=== PATIENT | male | born 1975 | race Caucasian/White ===

== ENCOUNTER 2020-08-21 15:47 | Inpatient (IN) | payer OTHER ==
[2020-08-21 16:36] LABS: ABSOLUTE LYMPHOCYTES (AUTO) 1.1 10^3/uL (0.5-4.7); ABSOLUTE MONOCYTES (AUTO) 0.3 10^3/uL (0.1-1.4); ABSOLUTE NEUT (AUTO) 6.8 10^3/uL (1.7-8.2); BASOPHILS % (AUTO) 0.2 % (0-2); EOSINOPHILS % (AUTO) 0.4 % (0-6); HEMATOCRIT 40.7 % (37.9-51.0); HEMOGLOBIN 13.8 g/dL (13.5-17.0); LYMPHOCYTES % (AUTO) 13.6 % (13-45); MEAN CORPUSCULAR HEMOGLOBIN 28.7 pg (27.0-33.4); MEAN CORPUSCULAR HGB CONC 33.9 g/dL (32.0-36.0); MEAN CORPUSCULAR VOLUME 84 fl (80-97); MONOCYTES % (AUTO) 4.1 % (3-13); PLATELET COUNT 229 10^3/uL (150-450); RED BLOOD COUNT 4.82 10^6/uL (4.35-5.55); RED CELL DISTRIBUTION WIDTH 13.3 % (11.5-14.0); SEGMENTED NEUTROPHILS % (AUTO) 81.7 % (42-78); TOTAL CELLS COUNTED % (AUTO) 100 %; WHITE BLOOD COUNT 8.3 10^3/uL (4.0-10.5)
[2020-08-21 16:53] LABS: ALBUMIN 4.1 g/dL (3.5-5.0); ALKALINE PHOSPHATASE 49 U/L (38-126); ANION GAP 13 (5-19); ASPARTATE AMINO TRANSFERASE 26 U/L (17-59); BILIRUBIN,DIRECT 0.2 mg/dL (0.0-0.4); BILIRUBIN,TOTAL 0.8 mg/dL (0.2-1.3); BLOOD UREA NITROGEN 13 mg/dL (7-20); CALCIUM 9.2 mg/dL (8.4-10.2); CARBON DIOXIDE 24 mmol/L (22-30); CHLORIDE 98 mmol/L (98-107); GLUCOSE 128 mg/dL (75-110); POTASSIUM 4.6 mmol/L (3.6-5.0); TOTAL PROTEIN 7.5 g/dL (6.3-8.2)
--- NOTE | 2020-08-21 17:13 | RADIOLOGY REPORT (SQ) ---
EXAM DESCRIPTION: CHEST SINGLE VIEW IMAGES COMPLETED DATE/TIME: 08/21/2020 4:56 pm REASON FOR STUDY: SOB COMPARISON: None. EXAM PARAMETERS: NUMBER OF VIEWS: One view. TECHNIQUE: Single frontal radiographic view of the chest acquired. RADIATION DOSE: NA LIMITATIONS: None. FINDINGS: LUNGS AND PLEURA: Low lung volumes with resultant bronchovascular crowding. Superimposed multifocal airspace opacities are seen throughout the lungs. Likely small left-sided pleural effusio n. No pneumothorax. MEDIASTINUM AND HILAR STRUCTURES: No masses. Contour normal. HEART AND VASCULAR STRUCTURES: Heart normal in size. Normal vasculature. BONES: No acute findings. HARDWARE: None in the chest. OTHER: No other significant finding. IMPRESSION: In the appropriate clinical setting, findings are consistent with multi lobar pneumonia. Given diffuse distribution, recommend consideration for atypical etiologies (to include viral/COVID ) in treatment planning. TECHNICAL DOCUMENTATION: JOB ID: [id number] 2010 [employer]- All Rights Reserved Reading location - IP/workstation name: [email or web address]
--- NOTE | 2020-08-21 18:05 | ER Document Report ---
Entered by TY DEAL SCRIBE 08/21/20 [id number] Acting as scribe for:MADIHA CONNELLY DO ED Respiratory Problem - General Chief Complaint: Breathing Difficulty Stated Complaint: DIFFICULTY BREATHING Time Seen by Provider: 08/21/20 16:19 Primary Care Provider: TONY HAYS MD [Primary Care Provider] - Follow up as needed Mode of Arrival: Ambulatory Information source: Patient Notes: This 45 year old male patient with known COVID-19 presents to the emergency department today with complaints of increasing shortness of breath. This dwayne ent was on vacation in [place] and he began having a headache on Monday evening along with a fever of 102, Monday went to an urgent care and he was tested for Covid and was prescribed amoxicillin. 2 days later that test came back positive. Since coming back home he has had increased shortness of breath. TRAVEL OUTSIDE OF THE [place] IN LAST 30 DAYS: No - Related Data Allergies/Adverse Reactions: No Known Allergies Allergy (Unverified 12/02/14 08:10) Home Medications: Metformin. Carvedilol. Fenifibrate. pravastatin. tulicity Past Medical History - General Information source: Patient - Social History Smoking Status: Former Smoker Cigarette use (# per day): No Frequency of alcohol use: None Drug Abuse: None Lives with: Family Family History: None - Past Medical History Cardiac Medical History: Reports: Hx Hypercholesterolemia, Hx Hypertension Endocrine Medical History: Reports: Hx Diabetes Mellitus Type 2 GI Medical History: Reports: Hx Gastroesophageal Reflux Disease Surgical Hx: Negative - Immunizations Hx Diphtheria, Pertussis, Tetanus Vaccination: Yes Review of Systems - Review of Systems Constitutional: See HPI, Fever EENT: No symptoms reported Cardiovascular: No symptoms reported Respiratory: See HPI, Cough, Short of breath, Wheezing Gastrointestinal: No symptoms reported Genitourinary: No symptoms reported Male Genitourinary: No symptoms reported Musculoskeletal: No symptoms reported Skin: No symptoms reported Hematologic/Lymphatic: No symptoms reported Neurological/Psychological: See HPI, Headaches -: Yes All other systems reviewed and negative Physical Exam - Vital signs Vitals: Temp 99.4 F 08/21/20 15:47 - Notes Notes: Physical Exam: General: Alert, obese. HEENT: Normocephalic. Atraumatic. PERRL. Extraocular movements intact. Oropharynx clear. Neck: Supple. Non-tender. Respiratory: No respiratory distress. Diminished in the bases bilaterally. Coarse rhonchi throughout. Cardiovascular: Regular rate and rhythm. Abdominal: Obese. Non-tender. No distension. Normal Bowel Sounds. Back: No gross abnormalities. Extremities: Moves all four extremities. Upper extremities: Normal inspection. Normal ROM. Lower extremities: Normal inspection. No edema. Normal ROM. Neurological: Normal cognition. AAOx4. Normal speech. Psychological: Normal affect. Normal Mood. Skin: Warm. Dry. Normal color. Course - Re-evaluation Re-evalutation: 08/21/20 18:34 MDM 45 year old with DM, Htn and HLD along with ISIS. Covid for the last week. Sick with multilobar pneumonia here. I have discussed with the hospitalist team and they have graciously agreed to see and evaluate for admission. - Vital Signs Vital signs: Temp Pulse Resp BP Pulse Ox 99.1 F 41 H 134/85 H 97 08/21/20 16:01 08/21/20 17:01 08/21/20 16:01 08/21/20 17:01 - Laboratory Result Diagrams: 08/21/20 15:50 08/21/20 15:50 Laboratory results interpreted by me: 08/21/20 08/21/20 08/21/20 15:50 15:50 15:50 Seg Neutrophils % 81.7 H ABG pO2 Sodium 135.2 L Glucose 128 H C-Reactive Protein 177.9 H 08/21/20 17:52 Seg Neutrophils % ABG pO2 73.6 L Sodium Glucose C-Reactive Protein - Diagnostic Test Radiology reviewed: Image reviewed, Reports reviewed - EKG Interpretation by Al EKG shows normal: Sinus rhythm Rate: Normal Rhythm: NSR - NSR NL [place] Poor R wave progression [address] elevation or depression my interpretation. Critical Care Note - Critical Care Note Total time excluding time spent on procedures (mins): 30 Discharge - Discharge Clinical Impression: COVID-19 Pneumonia Qualifiers: Pneumonia type: due to unspecified organism Laterality: bilateral Lung location: unspecified part of lung Qualified Code(s): J18.9 - Pneumonia, unspecified organism Condition: Serious Disposition: ADMITTED INPATIENT Admitting Provider: Mariza (Hospitalist) Unit Admitted: IMCU Referrals: TONY HAYS MD [Primary Care Provider] - Follow up as needed I personally performed the services described in the documentation, reviewed and edited the documentation which was dictated to the scribe in my presence, and it accurately records my words and actions.
[2020-08-21] MEDS ORDERED: DEXAMETHASONE SOD PHOSPHATE INJ 4 MG/1 ML VIAL IV ONE (18:11)
[2020-08-21] MEDS ORDERED: CEFTRIAXONE 1 GM/D5W RTU 1 GM/50 ML RTUPB IV ONE (18:11)
[2020-08-21] MEDS ORDERED: AZITHROMYCIN INJ 500 MG VIAL IV ONE ×2 (18:12→19:38)
[2020-08-21 18:26] LABS: ARTERIAL BLOOD BASE EXCESS -1.9 mmol/L; ARTERIAL BLOOD FIO2 4L; ARTERIAL BLOOD H2CO3 1.11 mmol/L (1.05-1.35); ARTERIAL BLOOD HCO3 22.4 mmol/L (20-24); ARTERIAL BLOOD O2 SATURATION 94.9 % (94-98); ARTERIAL BLOOD PO2 73.6 mmHg (80-100); ARTERIAL BLOOD TOTAL CO2 23.5 mmol/L (23-27)
[2020-08-21] MEDS ORDERED: ONDANSETRON HCL INJ/PF 4 MG/2 ML SDV IV PRN (18:30)
[2020-08-21] MEDS ORDERED: DEXTROSE 40% GEL 15 GM TUBE PO PRN ×2 (18:38)
[2020-08-21] MEDS ORDERED: DEXTROSE 50%-WATER 25 GM/50 ML DISP.SYRIN IV PRN ×2 (18:38)
[2020-08-21] MEDS ORDERED: GLUCAGON,HUMAN RECOMB 1 MG INJ IM PRN (18:38)
--- NOTE | 2020-08-21 19:05 | PDOC H&P ---
History of Present Illness Admission Date/PCP: TONY HAYS MD Patient complains of: Came in with complaints of shortness of breath for the last 1 week History of Present Illness: KAROLINA HUANG is a 45 year old male with history of diabetes mellitus, hypert ension, hypercholesteremia, obesity, sleep apnea came to the emergency room complaining of not feeling well, associated with shortness of breath for the last 1 week. He went [facility] [place] 1 week ago came back with the symptoms. He was tested for COVID-19 2 days ago which was positive. In the emergency room patient was tachypneic tachycardic, requiring oxygen supplementations. Medical consult was called for admission to hospital. Patient is full code. Past Medical History Cardiac Medical History: Reports: Hyperlipidema, Hypertension Endocrine Medical History: Reports: Diabetes Mellitus Type 2 GI Medical History: Reports: Gastroesophageal Reflux Disease Past Surgical History Past Surgical History: Reports: None Social History Lives with: Family Smoking Status: Former Smoker Electronic Cigarette use?: No Hx Recreational Drug Use: No Hx Prescription Drug Abuse: No - Advance Directive Resuscitation Status: Full Code Family History Family History: None Parental Family History Reviewed: Yes - Hypertension and diabetes mellitus Children Family History Reviewed: Yes Sibling(s) Family History Reviewed.: Yes Medication/Allergy Home Medications: Cephalexin Monohydrate [Keflex 500 mg Capsule] 500 mg PO TID 12/02/14 Gemfibrozil [Lopid] 600 mg PO DAILY 12/02/14 Glimepiride [Amaryl 4 mg Tablet] 4 mg PO BID 12/02/14 Hydrocodone/Chlorphen P-Stirex [Hydrocodone-Chlorpheniram Susp] 5 ml PO Q12H PRN 12/02/14 Irbesartan [Avapro] 300 mg PO DAILY 12/02/14 Metformin HCl [Glucophage] 500 mg PO DAILY 12/02/14 Ondansetron [Zofran Odt 4 mg Tablet] 1 - 2 tab PO Q4H PRN #30 tab.rapdis 12/02/14 Pioglitazone HCl 30 mg PO DAILY 12/02/14 Pravastatin Sodium [Pravachol] 40 mg PO DAILY 12/02/14 Allergies/Adverse Reactions: No Known Allergies Allergy (Unverified 12/02/14 08:10) Review of Systems Constitutional: PRESENT: fatigue, fever(s), weakness Eyes: ABSENT: visual disturbances Ears: ABSENT: hearing changes Nose, Mouth, and Throat: ABSENT: sore throat Cardiovascular: PRESENT: dyspnea on exertion Respiratory: PRESENT: cough, dyspnea Gastrointestinal: ABSENT: abdominal pain, constipation, diarrhea, hematemesis, hematochezia, nausea, vomiting Genitourinary: ABSENT: dysuria, hematuria Integumentary: ABSENT: rash, wounds Neurological: ABSENT: abnormal gait, abnormal speech, confusion, dizziness, focal weakness, syncope Psychiatric: ABSENT: anxiety, depression, homidical ideation, suicidal ideation Endocrine: ABSENT: cold intolerance, heat intolerance, polydipsia, polyuria Physical Exam Vital Signs: Temp Pulse Resp BP Pulse Ox 99.1 F 41 H 134/85 H 97 08/21/20 16:01 08/21/20 17:01 08/21/20 16:01 08/21/20 17:01 Intake & Output 08/20/20 08/21/20 08/22/20 06:59 06:59 06:59 Weight 128 kg General appearance: PRESENT: cooperative, morbidly obese, other - In moderate distress Head exam: PRESENT: atraumatic Eye exam: PRESENT: PERRLA Ear exam: PRESENT: normal external ear exam Teeth exam: PRESENT: poor dentation Neck exam: ABSENT: carotid bruit, JVD, lymphadenopathy, thyromegaly Respiratory exam: PRESENT: tachypnea Cardiovascular exam: PRESENT: tachycardia GI/Abdominal exam: PRESENT: normal bowel sounds, soft. ABSENT: distended, guarding, mass, organolmegaly, rebound, tenderness Rectal exam: PRESENT: deferred Extremities exam: PRESENT: full ROM. ABSENT: calf tenderness, clubbing, pedal edema Neurological exam: PRESENT: alert, awake, oriented to person, oriented to place, oriented to time, oriented to situation, CN II-XII grossly intact. ABSENT: motor sensory deficit Psychiatric exam: PRESENT: appropriate affect, normal mood. ABSENT: homicidal ideation, suicidal ideation Results Laboratory Results: 08/21/20 15:50 08/21/20 15:50 08/21/20 08/21/20 08/21/20 15:50 15:50 15:50 WBC 8.3 RBC 4.82 Hgb 13.8 Hct 40.7 MCV 84 MCH 28.7 MCHC 33.9 RDW 13.3 Plt Count 229 Seg Neutrophils % 81.7 H Carbonic Acid HCO3/H2CO3 Ratio ABG pH ABG pCO2 ABG pO2 ABG HCO3 ABG O2 Saturation ABG Base Excess FiO2 Sodium 135.2 L Potassium 4.6 Chloride 98 Carbon Dioxide 24 Anion Gap 13 BUN 13 Creatinine 0.69 Est GFR ( Amer) > 60 Glucose 128 H Lactic Acid 2.0 Calcium 9.2 Total Bilirubin 0.8 AST 26 Alkaline Phosphatase 49 C-Reactive Protein Total Protein 7.5 Albumin 4.1 08/21/20 08/21/20 15:50 17:52 WBC RBC Hgb Hct MCV MCH MCHC RDW Plt Count Seg Neutrophils % Carbonic Acid 1.11 HCO3/H2CO3 Ratio 20:1 ABG pH 7.40 ABG pCO2 37.0 ABG pO2 73.6 L ABG HCO3 22.4 ABG O2 Saturation 94.9 ABG Base Excess -1.9 FiO2 4L Sodium Potassium Chloride Carbon Dioxide Anion Gap BUN Creatinine Est GFR ( Amer) Glucose Lactic Acid Calcium Total Bilirubin AST Alkaline Phosphatase C-Reactive Protein 177.9 H Total Protein Albumin 08/21/20 15:50 Troponin I < 0.012 Impressions: Chest X-Ray 08/21/20 16:17 IMPRESSION: In the appropriate clinical setting, findings are consistent with multi lobar pneumonia. Given diffuse distribution, recommend consideration for atypical etiologies (to include viral/COVID) in treatment planning. Assessment and Plan - Diagnosis (1) COVID-19 Is this a current diagnosis for this admission?: Yes Plan: 08/21/2020-patient is going to be admitted to [facility] for COVID-19 pneumonia. BiPAP was requested. To continue oxygen supplementations. ABG was requested. CT of the chest was requested. Daily ferritin, ESR, C-reactive protein, procalcitonin levels are requested. Started on zinc, Zithromax, IV Rocephin 1 g daily, dexamethasone, to give convulsant plasma. Requested pharmacy to start on remdesivir. Patient is on treatment dose of Lovenox. CT of the chest is pending at this time. (2) Pneumonia Qualifiers: Pneumonia type: due to unspecified organism Laterality: bilateral Lung location: unspecified part of lung Qualified Code(s): J18.9 - Pneumonia, unspecified organism Is this a current diagnosis for this admission?: Yes Plan: 08/21/2020-chest x-ray indicated for bilateral pneumonia. Most likely COVID-19 pneumonia. Blood cultures are pending. Started on IV Rocephin, p.o. Zithromax daily. (3) Acute respiratory failure due to COVID-19 Is this a current diagnosis for this admission?: Yes Plan: 08/21/2020-patient is going to be admitted to [facility] with acute respiratory failu re with hypoxia. Patient is requiring oxygen supplementations. Patient may need BiPAP. (4) Morbid obesity Is this a current diagnosis for this admission?: No Plan: 08/21/2020-patient BMI is more than 39. Diet exercise weight loss lifestyle modifications discussed with the patient. (5) Diabetes Qualifiers: Diabetes mellitus type: type 2 Is this a current diagnosis for this admission?: No Plan: 08/21/2020-patient has history of type 2 diabetes mellitus. To restart him on Actos, glipizide. Placed on insulin sliding scale before meals and at bedtime. Again diet exercise weight loss lifestyle modifications discussed with the patient. - Time Anticipated Discharge Disposition: Home, Self Care Anticipated Discharge Timeframe: 1 week
--- NOTE | 2020-08-21 19:40 | EKG REPORT ---
SEVERITY:- ABNORMAL ECG - SINUS RHYTHM ABNORMAL T, CONSIDER ISCHEMIA, INFERIOR LEADS : Confirmed by: Marion Jama MD 21-Aug-2020 19:39:50
[2020-08-21 20:02] LABS: INTERNATIONAL RATION (INR) 0.93; PROTHROMBIN TIME 12.7 SEC (11.4-15.4)
[2020-08-21 20:03] LABS: PARTIAL THROMBOPLASTIN TIME 42.4 SEC (23.5-35.8)
--- NOTE | 2020-08-21 21:46 | RADIOLOGY REPORT (SQ) ---
EXAM DESCRIPTION: CT CHEST WITH INTRAVENOUS CONTRAST CLINICAL HISTORY: Clinical concern for acute pulmonary embolism. Patient presents with shortness of breath. COMPARISON: Chest radiograph performed the same day. TECHNIQUE: CT of the chest was performed with intravenous contrast using pulmonary embolism protocol, followed by CTA of the pulmonary arterial vasculature, with 3D reconstruction of the pulmonary arterial vasculature. The patient was injected with 100 mL Omnipaque 350 IV. FINDINGS: There are no filling defects in the main pulmonary trunk, first order or the visualized lower order branches of the bilateral pulmonary arteries, to suggest pulmonary embolism. There is no evidence of clinically significant thoracic aortic aneurysm or thoracic aortic dissection. There is no evidence of clinically significant pericardial effusion. There is diffuse severe bilateral multifocal groundglass opacities. Multiple prominent appearing mediastinal lymph nodes are likely reactive in nature. No suspicious lytic or blastic osseous lesions are identified. The visualized upper abdominal structures seen on the exam appear unremarkable. IMPRESSION: 1. No CT evidence of acute pulmonary embolism. 2. Diffuse severe multifocal ground glass opacities bilaterally. Although findings are nonspecific and differential diagnosis includes infectious and inflammatory causes, pattern is concerning for potential viral pneumonia. Clinical correlation is advised.
[2020-08-21] MEDS: ENOXAPARIN SODIUM INJ 120 MG/0.8 ML DISP.SYRIN SUBCUT SCH (23:00)
[2020-08-22] MEDS: ACETAMINOPHEN 325 MG TABLET PO PRN ×2 (06:08→22:49)
[2020-08-22] MEDS: PANTOPRAZOLE SODIUM 40 MG TABLET.DR PO SCH ×2 (06:09→17:04)
[2020-08-22] MEDS: INSULIN REG, HUMAN 100 UNIT/ML 3 ML VIAL (PYX) SUBCUT SCH ×5 (06:10→22:49)
[2020-08-22 06:25] LABS: ABSOLUTE MONOCYTES (AUTO) 0.2 10^3/uL (0.1-1.4); ABSOLUTE NEUT (AUTO) 5.6 10^3/uL (1.7-8.2); BASOPHILS % (AUTO) 0.1 % (0-2); HEMATOCRIT 40.8 % (37.9-51.0); HEMOGLOBIN 13.8 g/dL (13.5-17.0); LYMPHOCYTES % (AUTO) 14.1 % (13-45); MEAN CORPUSCULAR HEMOGLOBIN 28.9 pg (27.0-33.4); MEAN CORPUSCULAR HGB CONC 33.9 g/dL (32.0-36.0); MEAN CORPUSCULAR VOLUME 85 fl (80-97); MONOCYTES % (AUTO) 3.1 % (3-13); PLATELET COUNT 290 10^3/uL (150-450); RED BLOOD COUNT 4.77 10^6/uL (4.35-5.55); RED CELL DISTRIBUTION WIDTH 13.5 % (11.5-14.0); SEGMENTED NEUTROPHILS % (AUTO) 82.7 % (42-78); TOTAL CELLS COUNTED % (AUTO) 100 %; WHITE BLOOD COUNT 6.8 10^3/uL (4.0-10.5)
[2020-08-22 07:02] LABS: ALBUMIN 4.2 g/dL (3.5-5.0); ALKALINE PHOSPHATASE 47 U/L (38-126); ASPARTATE AMINO TRANSFERASE 26 U/L (17-59); BILIRUBIN,DIRECT 0.2 mg/dL (0.0-0.4); BILIRUBIN,TOTAL 0.6 mg/dL (0.2-1.3); BLOOD UREA NITROGEN 16 mg/dL (7-20); CALCIUM 9.4 mg/dL (8.4-10.2); CARBON DIOXIDE 18 mmol/L (22-30); CHLORIDE 99 mmol/L (98-107); GLUCOSE 103 mg/dL (75-110); TOTAL PROTEIN 7.9 g/dL (6.3-8.2)
[2020-08-22 07:14] LABS: C-REACTIVE PROTEIN 205.6 mg/L (<10.0)
[2020-08-22 07:25] LABS: ANION GAP 20 (5-19)
[2020-08-22] MEDS: ASCORBIC ACID 500 MG TABLET PO SCH ×2 (09:09→17:04)
[2020-08-22] MEDS: ASPIRIN 81 MG TABLET, ENT COATED PO SCH (09:09)
[2020-08-22] MEDS: CHOLECALCIFEROL (D3) 1,000 UNIT (25 MCG) TABLET PO SCH (09:09)
[2020-08-22] MEDS: ZINC SULFATE 220 MG CAPSULE PO SCH (09:09)
[2020-08-22] MEDS: DEXAMETHASONE SOD PHOS INJ 10 MG/1 ML VIAL IV SCH (09:09)
[2020-08-22] MEDS: ENOXAPARIN SODIUM INJ 120 MG/0.8 ML DISP.SYRIN SUBCUT SCH ×2 (09:09→21:42)
[2020-08-22 09:51] LABS: APPEARANCE,URINE CLEAR; BILIRUBIN,URINE NEGATIVE (NEGATIVE); COLOR,URINE YELLOW; GLUCOSE, URINE >=500 mg/dL (NEGATIVE); KETONES,URINE 20 mg/dL (NEGATIVE); LEUKOCYTE ESTERASE,URINE NEGATIVE (NEGATIVE); NITRITE,URINE NEGATIVE (NEGATIVE); PROTEIN,URINE 30 mg/dL (NEGATIVE); UROBILINOGEN,URINE NEGATIVE mg/dL (<2.0)
[2020-08-22 10:04] LABS: A TYPE INFLUENZA AG NEGATIVE (NEGATIVE); B INFLUENZA AG NEGATIVE (NEGATIVE)
--- NOTE | 2020-08-22 16:13 | PDOC PROGRESS REPORT ---
Subjective Date:: 08/22/20 Subjective:: No adverse events overnight. No new complaints. He was having a nose bleed fro m the oxygen and so humidity was added. He is on about 5 L and his SPO2 is 91 to 92%. He is very worried about his prognosis. Reason For Visit: COVID,PNEUMONIA Physical Exam Vital Signs: Temp Pulse Resp BP Pulse Ox 97.6 F 100 20 113/60 92 08/22/20 11:14 08/22/20 11:14 08/22/20 11:14 08/22/20 11:14 08/22/20 11:14 Intake & Output 08/21/20 08/22/20 08/23/20 06:59 06:59 06:59 Intake Total 50 444 Output Total 975 Balance 50 -531 Weight 117.6 kg General appearance: PRESENT: cooperative, disheveled, mild distress, morbidly obese Respiratory exam: PRESENT: clear to auscultation sarah, symmetrical, tachypnea, unlabored. ABSENT: accessory muscle use, chest wall tenderness, prolonged expiratory phas, rhonchi, wheezes Cardiovascular exam: PRESENT: +S1, +S2, tachycardia Pulses: PRESENT: normal carotid pulses Vascular exam: PRESENT: normal capillary refill GI/Abdominal exam: PRESENT: normal bowel sounds, soft. ABSENT: distended, guarding, rebound, tenderness Extremities exam: ABSENT: clubbing, pedal edema Musculoskeletal exam: PRESENT: normal inspection. ABSENT: deformity Neurological exam: PRESENT: awake, oriented to person, oriented to place, oriented to situation Psychiatric exam: PRESENT: anxious Skin exam: PRESENT: dry, warm Results Laboratory Results: 08/22/20 05:06 08/22/20 05:06 08/21/20 08/21/20 08/21/20 15:50 15:50 15:50 WBC 8.3 RBC 4.82 Hgb 13.8 Hct 40.7 MCV 84 MCH 28.7 MCHC 33.9 RDW 13.3 Plt Count 229 Seg Neutrophils % 81.7 H Carbonic Acid HCO3/H2CO3 Ratio ABG pH ABG pCO2 ABG pO2 ABG HCO3 ABG O2 Saturation ABG Base Excess FiO2 Sodium 135.2 L Potassium 4.6 Chloride 98 Carbon Dioxide 24 Anion Gap 13 BUN 13 Creatinine 0.69 Est GFR ( Amer) > 60 Glucose 128 H Lactic Acid 2.0 Calcium 9.2 Ferritin Total Bilirubin 0.8 AST 26 Alkaline Phosphatase 49 C-Reactive Protein Total Protein 7.5 Albumin 4.1 Urine Color Urine Appearance Urine pH Ur Specific Kyle Urine Protein Urine Glucose (UA) Urine Ketones Urine Blood Urine Nitrite Ur Leukocyte Esterase Urine WBC (Auto) Urine RBC (Auto) Blood Type 08/21/20 08/21/20 08/21/20 15:50 17:52 19:34 WBC RBC Hgb Hct MCV MCH MCHC RDW Plt Count Seg Neutrophils % Carbonic Acid 1.11 HCO3/H2CO3 Ratio 20:1 ABG pH 7.40 ABG pCO2 37.0 ABG pO2 73.6 L ABG HCO3 22.4 ABG O2 Saturation 94.9 ABG Base Excess -1.9 FiO2 4L Sodium Potassium Chloride Carbon Dioxide Anion Gap BUN Creatinine Est GFR ( Amer) Glucose Lactic Acid Calcium Ferritin Total Bilirubin AST Alkaline Phosphatase C-Reactive Protein 177.9 H Total Protein Albumin Urine Color Urine Appearance Urine pH Ur Specific Kyle Urine Protein Urine Glucose (UA) Urine Ketones Urine Blood Urine Nitrite Ur Leukocyte Esterase Urine WBC (Auto) Urine RBC (Auto) Blood Type O POSITIVE 08/22/20 08/22/20 08/22/20 05:06 05:06 09:20 WBC 6.8 RBC 4.77 Hgb 13.8 Hct 40.8 MCV 85 MCH 28.9 MCHC 33.9 RDW 13.5 Plt Count 290 Seg Neutrophils % 82.7 H Carbonic Acid HCO3/H2CO3 Ratio ABG pH ABG pCO2 ABG pO2 ABG HCO3 ABG O2 Saturation ABG Base Excess FiO2 Sodium 136.5 L Potassium 5.0 Chloride 99 Carbon Dioxide 18 L Anion Gap 20 H BUN 16 Creatinine 0.62 Est GFR ( Amer) > 60 Glucose 103 Lactic Acid Calcium 9.4 Ferritin 313.00 Total Bilirubin 0.6 AST 26 Alkaline Phosphatase 47 C-Reactive Protein 205.6 H Total Protein 7.9 Albumin 4.2 Urine Color YELLOW Urine Appearance CLEAR Urine pH 5.0 Ur Specific Kyle 1.030 Urine Protein 30 H Urine Glucose (UA) >=500 H Urine Ketones 20 H Urine Blood NEGATIVE Urine Nitrite NEGATIVE Ur Leukocyte Esterase NEGATIVE Urine WBC (Auto) 1 Urine RBC (Auto) 1 Blood Type 08/21/20 08/21/20 15:50 19:34 Troponin I < 0.012 < 0.012 Impressions: Chest/Abdomen CTA 08/21/20 00:00 IMPRESSION: 1. No CT evidence of acute pulmonary embolism. 2. Diffuse severe multifocal ground glass opacities bilaterally. Although findings are nonspecific and differential diagnosis includes infectious and inflammatory causes, pattern is concerning for potential viral pneumonia. Clinical correlation is advised. Chest X-Ray 08/21/20 16:17 IMPRESSION: In the appropriate clinical setting, findings are consistent with multi lobar pneumonia. Given diffuse distribution, recommend consideration for atypical etiologies (to include viral/COVID) in treatment planning. Assessment and Plan - Diagnosis (1) Acute respiratory failure due to COVID-19 Is this a current diagnosis for this admission?: Yes (2) Pneumonia due to COVID-19 virus Is this a current diagnosis for this admission?: Yes (3) Type 2 diabetes mellitus treated with insulin Is this a current diagnosis for this admission?: Yes (4) Hypertension Qualifiers: Hypertension type: essential hypertension Qualified Code(s): I10 - Essential (primary) hypertension Is this a current diagnosis for this admission?: Yes (5) Hyperlipidemia associated with type 2 diabetes mellitus Is this a current diagnosis for this admission?: Yes (6) Morbid obesity Is this a current diagnosis for this admission?: Yes - Plan Summary Summary: Continue with Decadron. Start remdesivir. On empiric antibiotic coverage, cultures pending. We resumed a few of his home medications today, but most of his blood pressure medication was held because his blood pressure is not elevated at this point. Currently on 5 L nasal cannula, continue supportive care. - Time Time Spent with patient: 15-24 minutes Anticipated Discharge Disposition: Undetermin Anticipated Discharge Timeframe: Unknown
[2020-08-22] MEDS: CEFTRIAXONE 1 GM/D5W RTU 1 GM/50 ML RTUPB IV SCH (17:04)
[2020-08-22] MEDS ORDERED: REMDESIVIR 200 MG in NORMAL SALINE 250 ML IV ONE (18:00)
--- NOTE | 2020-08-22 19:40 | EKG REPORT ---
SEVERITY:- ABNORMAL ECG - SINUS RHYTHM ABNORMAL T, CONSIDER ISCHEMIA, INFERIOR LEADS : Confirmed by: Marion Jama MD 22-Aug-2020 19:40:01
[2020-08-22] MEDS: ATORVASTATIN CALCIUM 10 MG TABLET PO SCH (21:42)
[2020-08-22] MEDS: CARVEDILOL 6.25 MG TABLET PO SCH (21:42)
[2020-08-23] MEDS: PANTOPRAZOLE SODIUM 40 MG TABLET.DR PO SCH ×2 (05:17→17:23)
[2020-08-23] MEDS: ACETAMINOPHEN 325 MG TABLET PO PRN ×2 (05:26→10:07)
[2020-08-23 06:43] LABS: ABSOLUTE LYMPHOCYTES (AUTO) 1.4 10^3/uL (0.5-4.7); ABSOLUTE MONOCYTES (AUTO) 0.8 10^3/uL (0.1-1.4); ABSOLUTE NEUT (AUTO) 9.5 10^3/uL (1.7-8.2); BASOPHILS % (AUTO) 0.2 % (0-2); HEMATOCRIT 40.6 % (37.9-51.0); HEMOGLOBIN 13.8 g/dL (13.5-17.0); LYMPHOCYTES % (AUTO) 12.2 % (13-45); MEAN CORPUSCULAR HEMOGLOBIN 28.6 pg (27.0-33.4); MEAN CORPUSCULAR HGB CONC 33.9 g/dL (32.0-36.0); MEAN CORPUSCULAR VOLUME 84 fl (80-97); MONOCYTES % (AUTO) 7.1 % (3-13); PLATELET COUNT 366 10^3/uL (150-450); RED BLOOD COUNT 4.82 10^6/uL (4.35-5.55); RED CELL DISTRIBUTION WIDTH 13.3 % (11.5-14.0); SEGMENTED NEUTROPHILS % (AUTO) 80.5 % (42-78); TOTAL CELLS COUNTED % (AUTO) 100 %; WHITE BLOOD COUNT 11.8 10^3/uL (4.0-10.5)
[2020-08-23 07:14] LABS: ALBUMIN 4.1 g/dL (3.5-5.0); ALKALINE PHOSPHATASE 47 U/L (38-126); ANION GAP 17 (5-19); ASPARTATE AMINO TRANSFERASE 21 U/L (17-59); BILIRUBIN,DIRECT 0.2 mg/dL (0.0-0.4); BILIRUBIN,TOTAL 0.7 mg/dL (0.2-1.3); BLOOD UREA NITROGEN 20 mg/dL (7-20); C-REACTIVE PROTEIN 81.8 mg/L (<10.0); CALCIUM 9.1 mg/dL (8.4-10.2); CARBON DIOXIDE 22 mmol/L (22-30); CHLORIDE 98 mmol/L (98-107); GLUCOSE 110 mg/dL (75-110); POTASSIUM 4.6 mmol/L (3.6-5.0); TOTAL PROTEIN 7.6 g/dL (6.3-8.2)
[2020-08-23] MEDS ORDERED: INFLUENZA QUAD (6MOS+) 2020-21 VAC 0.5 ML SYR IM ONE (08:00)
[2020-08-23] MEDS: INSULIN REG, HUMAN 100 UNIT/ML 3 ML VIAL (PYX) SUBCUT SCH ×4 (08:16→21:56)
[2020-08-23] MEDS ORDERED: PRAVASTATIN SODIUM 40 MG PO SCH (10:00)
[2020-08-23] MEDS ORDERED: CANAGLIFLOZIN 300 MG PO SCH (10:00)
[2020-08-23] MEDS: ZINC SULFATE 220 MG CAPSULE PO SCH (10:06)
[2020-08-23] MEDS: ASPIRIN 81 MG TABLET, ENT COATED PO SCH (10:06)
[2020-08-23] MEDS: CARVEDILOL 6.25 MG TABLET PO SCH ×2 (10:06→21:55)
[2020-08-23] MEDS: ENOXAPARIN SODIUM INJ 120 MG/0.8 ML DISP.SYRIN SUBCUT SCH ×2 (10:06→21:57)
[2020-08-23] MEDS: DEXAMETHASONE SOD PHOS INJ 10 MG/1 ML VIAL IV SCH (10:07)
[2020-08-23] MEDS: ASCORBIC ACID 500 MG TABLET PO SCH ×2 (10:07→17:23)
[2020-08-23] MEDS: CHOLECALCIFEROL (D3) 1,000 UNIT (25 MCG) TABLET PO SCH (10:07)
[2020-08-23] MEDS: GUAIFENESIN/CODEINE PHOS 100-10 MG/ 5 ML UDC PO PRN ×2 (12:07→22:02)
[2020-08-23] MEDS ORDERED: SODIUM CHLORIDE NASAL SPRAY 44 ML NAREB PRN (13:44)
[2020-08-23] MEDS: BENZONATATE 100 MG CAPSULE PO SCH ×2 (14:05→21:56)
--- NOTE | 2020-08-23 14:39 | PDOC PROGRESS REPORT ---
Subjective Date:: 08/23/20 Subjective:: No adverse events overnight. No new complaints. It looks like they wanted him to go on CPAP overnight but he refused. He is still on 5 L and his saturations are holding okay today. He does not appear tachypneic, he just looks tired. He said he got 3 or 4 hours of sleep last night. Reason For Visit: COVID,PNEUMONIA Physical Exam Vital Signs: Temp Pulse Resp BP Pulse Ox 97.9 F 84 16 126/69 H 95 08/23/20 08:06 08/23/20 08:06 08/23/20 08:06 08/23/20 08:06 08/23/20 09:20 Intake & Output 08/22/20 08/23/20 08/24/20 06:59 06:59 06:59 Intake Total 50 2118 Output Total 2775 Balance 50 -657 Weight 117.6 kg 113.2 kg General appearance: PRESENT: cooperative, disheveled, mild distress, morbidly obese Respiratory exam: PRESENT: clear to auscultation sarah, symmetrical, tachypnea, unlabored. ABSENT: accessory muscle use, chest wall tenderness, prolonged expiratory phas, rhonchi, wheezes Cardiovascular exam: PRESENT: +S1, +S2, tachycardia Pulses: PRESENT: normal carotid pulses Vascular exam: PRESENT: normal capillary refill GI/Abdominal exam: PRESENT: normal bowel sounds, soft. ABSENT: distended, guarding, rebound, tenderness Extremities exam: ABSENT: clubbing, pedal edema Musculoskeletal exam: PRESENT: normal inspection. ABSENT: deformity Neurological exam: PRESENT: awake, oriented to person, oriented to place, oriented to situation Psychiatric exam: PRESENT: Flat affect Skin exam: PRESENT: dry, warm Results Laboratory Results: 08/23/20 05:55 08/23/20 05:55 08/21/20 08/23/20 08/23/20 19:34 05:55 05:55 WBC 11.8 H RBC 4.82 Hgb 13.8 Hct 40.6 MCV 84 MCH 28.6 MCHC 33.9 RDW 13.3 Plt Count 366 Seg Neutrophils % 80.5 H Sodium 136.5 L Potassium 4.6 Chloride 98 Carbon Dioxide 22 Anion Gap 17 BUN 20 Creatinine 0.66 Est GFR ( Amer) > 60 Glucose 110 Calcium 9.1 Ferritin 356.00 Total Bilirubin 0.7 AST 21 Alkaline Phosphatase 47 C-Reactive Protein 81.8 H Total Protein 7.6 Albumin 4.1 Blood Type O POSITIVE 08/21/20 08/21/20 15:50 19:34 Troponin I < 0.012 < 0.012 Impressions: Chest/Abdomen CTA 08/21/20 00:00 IMPRESSION: 1. No CT evidence of acute pulmonary embolism. 2. Diffuse severe multifocal ground glass opacities bilaterally. Although findings are nonspecific and differential diagnosis includes infectious and inflammatory causes, pattern is concerning for potential viral pneumonia. Clinical correlation is advised. Chest X-Ray 08/21/20 16:17 IMPRESSION: In the appropriate clinical setting, findings are consistent with multi lobar pneumonia. Given diffuse distribution, recommend consideration for atypical etiologies (to include viral/COVID) in treatment planning. Assessment and Plan - Diagnosis (1) Acute respiratory failure due to COVID-19 Is this a current diagnosis for this admission?: Yes (2) Pneumonia due to COVID-19 virus Is this a current diagnosis for this admission?: Yes (3) Type 2 diabetes mellitus treated with insulin Is this a current diagnosis for this admission?: Yes (4) Hypertension Qualifiers: Hypertension type: essential hypertension Qualified Code(s): I10 - Essential (primary) hypertension Is this a current diagnosis for this admission?: Yes (5) Hyperlipidemia associated with type 2 diabetes mellitus Is this a current diagnosis for this admission?: Yes (6) Morbid obesity Is this a current diagnosis for this admission?: Yes - Plan Summary Summary: Continue with Decadron. Continue remdesivir. On empiric antibiotic coverage, cultures pending. We resumed a few of his home medications today, but most of his blood pressure medication was held because his blood pressure is not elevated at this point. Currently on 5 L nasal cannula, continue supportive care. - Time Time Spent with patient: 15-24 minutes Anticipated Discharge Disposition: Home, Self Care Anticipated Discharge Timeframe: Unknown
[2020-08-23] MEDS: CEFTRIAXONE 1 GM/D5W RTU 1 GM/50 ML RTUPB IV SCH (17:23)
[2020-08-23 18:41] LABS: INTERNATIONAL RATION (INR) 0.99; PROTHROMBIN TIME 13.3 SEC (11.4-15.4)
[2020-08-23 18:42] LABS: PARTIAL THROMBOPLASTIN TIME 42.9 SEC (23.5-35.8)
[2020-08-23 18:44] LABS: D-DIMER 0.29 ug/mL (0.00-0.50)
[2020-08-23] MEDS: ATORVASTATIN CALCIUM 10 MG TABLET PO SCH (21:55)
[2020-08-23] MEDS: REMDESIVIR 100 MG in NORMAL SALINE 250 ML IV SCH (21:59)
[2020-08-24 06:03] LABS: HEMOGLOBIN 13.3 g/dL (13.5-17.0); MEAN CORPUSCULAR HEMOGLOBIN 28.9 pg (27.0-33.4); MEAN CORPUSCULAR HGB CONC 34.2 g/dL (32.0-36.0); MEAN CORPUSCULAR VOLUME 85 fl (80-97); PLATELET COUNT 393 10^3/uL (150-450); RED BLOOD COUNT 4.61 10^6/uL (4.35-5.55); RED CELL DISTRIBUTION WIDTH 13.5 % (11.5-14.0); WHITE BLOOD COUNT 8.9 10^3/uL (4.0-10.5)
[2020-08-24] MEDS: BENZONATATE 100 MG CAPSULE PO SCH ×3 (06:11→22:34)
[2020-08-24] MEDS: PANTOPRAZOLE SODIUM 40 MG TABLET.DR PO SCH ×2 (06:11→17:24)
[2020-08-24] MEDS: GUAIFENESIN/CODEINE PHOS 100-10 MG/ 5 ML UDC PO PRN ×2 (06:36→14:39)
[2020-08-24] MEDS: ACETAMINOPHEN 325 MG TABLET PO PRN (06:36)
[2020-08-24 06:39] LABS: ALBUMIN 3.7 g/dL (3.5-5.0); ALKALINE PHOSPHATASE 48 U/L (38-126); ANION GAP 12 (5-19); ASPARTATE AMINO TRANSFERASE 19 U/L (17-59); BILIRUBIN,DIRECT 0.2 mg/dL (0.0-0.4); BILIRUBIN,TOTAL 0.5 mg/dL (0.2-1.3); BLOOD UREA NITROGEN 21 mg/dL (7-20); C-REACTIVE PROTEIN 75.7 mg/L (<10.0); CALCIUM 8.7 mg/dL (8.4-10.2); CARBON DIOXIDE 24 mmol/L (22-30); CHLORIDE 101 mmol/L (98-107); GLUCOSE 120 mg/dL (75-110); POTASSIUM 4.6 mmol/L (3.6-5.0)
[2020-08-24] MEDS: INSULIN REG, HUMAN 100 UNIT/ML 3 ML VIAL (PYX) SUBCUT SCH ×4 (08:36→22:34)
[2020-08-24] MEDS: DEXAMETHASONE SOD PHOS INJ 10 MG/1 ML VIAL IV SCH (09:59)
[2020-08-24] MEDS: CARVEDILOL 6.25 MG TABLET PO SCH ×2 (09:59→22:34)
[2020-08-24] MEDS: CHOLECALCIFEROL (D3) 1,000 UNIT (25 MCG) TABLET PO SCH (10:00)
[2020-08-24] MEDS: ENOXAPARIN SODIUM INJ 120 MG/0.8 ML DISP.SYRIN SUBCUT SCH ×2 (10:00→22:34)
[2020-08-24] MEDS: ASCORBIC ACID 500 MG TABLET PO SCH ×2 (10:00→17:24)
[2020-08-24] MEDS: ASPIRIN 81 MG TABLET, ENT COATED PO SCH (10:00)
[2020-08-24] MEDS: ZINC SULFATE 220 MG CAPSULE PO SCH (10:01)
[2020-08-24 13:38] LABS: APPEARANCE,URINE CLEAR; BILIRUBIN,URINE NEGATIVE (NEGATIVE); COLOR,URINE YELLOW; GLUCOSE, URINE >=500 mg/dL (NEGATIVE); KETONES,URINE TRACE mg/dL (NEGATIVE); LEUKOCYTE ESTERASE,URINE NEGATIVE (NEGATIVE); NITRITE,URINE NEGATIVE (NEGATIVE); PROTEIN,URINE NEGATIVE (NEGATIVE); URINE SPECIFIC GRAVITY 1.027; UROBILINOGEN,URINE NEGATIVE mg/dL (<2.0)
--- NOTE | 2020-08-24 16:27 | PDOC PROGRESS REPORT ---
Subjective Date:: 08/24/20 Subjective:: No adverse events overnight. No new complaints. Oxygen requirement stable at 5 L. He said he actually slept all night last night. His cough is not as bad today. Reason For Visit: COVID,PNEUMONIA Physical Exam Vital Signs: Temp Pulse Resp BP Pulse Ox 97.8 F 79 14 138/81 H 94 08/24/20 07:19 08/24/20 14:00 08/24/20 07:19 08/24/20 07:19 08/24/20 10:22 Intake & Output 08/23/20 08/24/20 08/25/20 06:59 06:59 06:59 Intake Total 2168 1980 Output Total 2775 3375 Balance -607 -1395 Weight 113.2 kg 118 kg General appearance: PRESENT: cooperative, disheveled, mild distress, morbidly obese Respiratory exam: PRESENT: clear to auscultation sarah, symmetrical, tachypnea, unlabored. ABSENT: accessory muscle use, chest wall tenderness, prolonged expiratory phas, rhonchi, wheezes Cardiovascular exam: PRESENT: +S1, +S2, tachycardia Pulses: PRESENT: normal carotid pulses Vascular exam: PRESENT: normal capillary refill GI/Abdominal exam: PRESENT: normal bowel sounds, soft. ABSENT: distended, gua rding, rebound, tenderness Extremities exam: ABSENT: clubbing, pedal edema Musculoskeletal exam: PRESENT: normal inspection. ABSENT: deformity Neurological exam: PRESENT: awake, oriented to person, oriented to place, oriented to situation Psychiatric exam: PRESENT: Flat affect Skin exam: PRESENT: dry, warm Results Laboratory Results: 08/24/20 05:22 08/24/20 05:22 08/24/20 08/24/20 08/24/20 05:22 05:22 11:45 WBC 8.9 RBC 4.61 Hgb 13.3 L Hct 39.0 MCV 85 MCH 28.9 MCHC 34.2 RDW 13.5 Plt Count 393 Sodium 137.4 Potassium 4.6 Chloride 101 Carbon Dioxide 24 Anion Gap 12 BUN 21 H Creatinine 0.62 Est GFR ( Amer) > 60 Glucose 120 H Calcium 8.7 Ferritin 406.00 Total Bilirubin 0.5 AST 19 Alkaline Phosphatase 48 C-Reactive Protein 75.7 H Total Protein 7.0 Albumin 3.7 Urine Color YELLOW Urine Appearance CLEAR Urine pH 6.0 Ur Specific [place] 1.027 Urine Protein NEGATIVE Urine Glucose (UA) >=500 H Urine Ketones TRACE H Urine Blood NEGATIVE Urine Nitrite NEGATIVE Ur Leukocyte Esterase NEGATIVE Urine WBC (Auto) 0 08/21/20 08/21/20 15:50 19:34 Troponin I < 0.012 < 0.012 Impressions: Chest/Abdomen CTA 08/21/20 00:00 IMPRESSION: 1. No CT evidence of acute pulmonary embolism. 2. Diffuse severe multifocal ground glass opacities bilaterally. Although findings are nonspecific and differential diagnosis includes infectious and inflammatory causes, pattern is concerning for potential viral pneumonia. Clinical correlation is advised. Chest X-Ray 08/21/20 16:17 IMPRESSION: In the appropriate clinical setting, findings are consistent with multi lobar pneumonia. Given diffuse distribution, recommend consideration for atypical etiologies (to include viral/COVID) in treatment planning. Assessment and Plan - Diagnosis (1) Acute respiratory failure due to COVID-19 Is this a current diagnosis for this admission?: Yes (2) Pneumonia due to COVID-19 virus Is this a current diagnosis for this admission?: Yes (3) Type 2 diabetes mellitus treated with insulin Is this a current diagnosis for this admission?: Yes (4) Hypertension Qualifiers: Hypertension type: essential hypertension Qualified Code(s): I10 - Essential (primary) hypertension Is this a current diagnosis for this admission?: Yes (5) Hyperlipidemia associated with type 2 diabetes mellitus Is this a current diagnosis for this admission?: Yes (6) Morbid obesity Is this a current diagnosis for this admission?: Yes - Plan Summary Summary: Continue with Decadron. Continue remdesivir. On empiric antibiotic coverage, cultures pending. We resumed a few of his home medications, but most of his blood pressure medication was held because his blood pressure is not elevated at this point. Currently on 5 L nasal cannula, continue supportive care. - Time Time Spent with patient: 15-24 minutes Anticipated Discharge Disposition: Unknown Anticipated Discharge Timeframe: Unknown
[2020-08-24] MEDS: CEFTRIAXONE 1 GM/D5W RTU 1 GM/50 ML RTUPB IV SCH (17:25)
[2020-08-24] MEDS: ATORVASTATIN CALCIUM 10 MG TABLET PO SCH (22:34)
[2020-08-24] MEDS: REMDESIVIR 100 MG in NORMAL SALINE 250 ML IV SCH (22:35)
[2020-08-25] MEDS: GUAIFENESIN/CODEINE PHOS 100-10 MG/ 5 ML UDC PO PRN ×4 (03:24→22:37)
[2020-08-25] MEDS: PANTOPRAZOLE SODIUM 40 MG TABLET.DR PO SCH ×2 (05:07→16:58)
[2020-08-25] MEDS: BENZONATATE 100 MG CAPSULE PO SCH ×3 (05:07→22:37)
[2020-08-25 05:33] LABS: ABSOLUTE LYMPHOCYTES (AUTO) 1.8 10^3/uL (0.5-4.7); ABSOLUTE MONOCYTES (AUTO) 1.1 10^3/uL (0.1-1.4); BASOPHILS % (AUTO) 0.4 % (0-2); EOSINOPHILS % (AUTO) 0.3 % (0-6); HEMATOCRIT 40.3 % (37.9-51.0); HEMOGLOBIN 13.4 g/dL (13.5-17.0); LYMPHOCYTES % (AUTO) 20.2 % (13-45); MEAN CORPUSCULAR HEMOGLOBIN 28.1 pg (27.0-33.4); MEAN CORPUSCULAR HGB CONC 33.3 g/dL (32.0-36.0); MEAN CORPUSCULAR VOLUME 84 fl (80-97); MONOCYTES % (AUTO) 12.4 % (3-13); PLATELET COUNT 435 10^3/uL (150-450); RED BLOOD COUNT 4.77 10^6/uL (4.35-5.55); RED CELL DISTRIBUTION WIDTH 13.2 % (11.5-14.0); SEGMENTED NEUTROPHILS % (AUTO) 66.7 % (42-78); TOTAL CELLS COUNTED % (AUTO) 100 %
[2020-08-25 06:09] LABS: ALBUMIN 3.6 g/dL (3.5-5.0); ALKALINE PHOSPHATASE 41 U/L (38-126); ANION GAP 11 (5-19); ASPARTATE AMINO TRANSFERASE 19 U/L (17-59); BILIRUBIN,DIRECT 0.5 mg/dL (0.0-0.4); BILIRUBIN,TOTAL 0.7 mg/dL (0.2-1.3); BLOOD UREA NITROGEN 21 mg/dL (7-20); C-REACTIVE PROTEIN 30.6 mg/L (<10.0); CALCIUM 8.8 mg/dL (8.4-10.2); CARBON DIOXIDE 25 mmol/L (22-30); CHLORIDE 99 mmol/L (98-107); GLUCOSE 172 mg/dL (75-110); POTASSIUM 4.8 mmol/L (3.6-5.0); TOTAL PROTEIN 7.1 g/dL (6.3-8.2)
[2020-08-25] MEDS: INSULIN REG, HUMAN 100 UNIT/ML 3 ML VIAL (PYX) SUBCUT SCH ×4 (08:29→22:38)
[2020-08-25] MEDS: ACETAMINOPHEN 325 MG TABLET PO PRN ×2 (11:16)
[2020-08-25] MEDS: CHOLECALCIFEROL (D3) 1,000 UNIT (25 MCG) TABLET PO SCH (11:16)
[2020-08-25] MEDS: ENOXAPARIN SODIUM INJ 120 MG/0.8 ML DISP.SYRIN SUBCUT SCH ×2 (11:17→22:37)
[2020-08-25] MEDS: DEXAMETHASONE SOD PHOSPHATE INJ 4 MG/1 ML VIAL IV SCH ×2 (11:17→22:38)
[2020-08-25] MEDS: CARVEDILOL 6.25 MG TABLET PO SCH ×2 (11:17→22:37)
[2020-08-25] MEDS: ZINC SULFATE 220 MG CAPSULE PO SCH (11:17)
[2020-08-25] MEDS: ASPIRIN 81 MG TABLET, ENT COATED PO SCH (11:17)
[2020-08-25] MEDS: ASCORBIC ACID 500 MG TABLET PO SCH ×2 (11:17→17:00)
[2020-08-25 12:51] LABS: APPEARANCE,URINE CLEAR; BILIRUBIN,URINE NEGATIVE (NEGATIVE); COLOR,URINE YELLOW; GLUCOSE, URINE >=500 mg/dL (NEGATIVE); KETONES,URINE TRACE mg/dL (NEGATIVE); PROTEIN,URINE NEGATIVE (NEGATIVE); URINE SPECIFIC GRAVITY 1.028; UROBILINOGEN,URINE NEGATIVE mg/dL (<2.0)
--- NOTE | 2020-08-25 15:17 | PDOC PROGRESS REPORT ---
Subjective Date:: 08/25/20 Subjective:: No adverse events overnight. No new complaints. Oxygenation has been stable on 5 L. He was able to get up and perform some self-care today such as brushing his teeth without getting too short of breath while he was on oxygen. He said he just feels sort of tired but overall he feels a lot better than he did when he came in. Reason For Visit: COVID,PNEUMONIA Physical Exam Vital Signs: Temp Pulse Resp BP Pulse Ox 98.5 F 71 18 117/69 99 08/25/20 11:23 08/25/20 11:23 08/25/20 08:00 08/25/20 11:23 08/25/20 11:23 Intake & Output 08/24/20 08/25/20 08/26/20 06:59 06:59 06:59 Intake Total 1980 1380 430 Output Total 3375 1100 500 Balance -1395 280 -70 Weight 118 kg 118 kg General appearance: PRESENT: cooperative, disheveled, mild distress, morbidly obese Respiratory exam: PRESENT: clear to auscultation sarah, symmetrical, tachypnea, unlabored. ABSENT: accessory muscle use, chest wall tenderness, prolonged expiratory phas, rhonchi, wheezes Cardiovascular exam: PRESENT: +S1, +S2, tachycardia Pulses: PRESENT: normal carotid pulses Vascular exam: PRESENT: normal capillary refill GI/Abdominal exam: PRESENT: normal bowel sounds, soft. ABSENT: distended, guarding, rebound, tenderness Extremities exam: ABSENT: clubbing, pedal edema Musculoskeletal exam: PRESENT: normal inspection. ABSENT: deformity Neurological exam: PRESENT: awake, oriented to person, oriented to place, oriented to situation Psychiatric exam: PRESENT: Flat affect Skin exam: PRESENT: dry, warm Results Laboratory Results: 08/25/20 04:22 08/25/20 04:22 08/25/20 08/25/20 08/25/20 03:00 04:22 04:22 WBC 9.0 RBC 4.77 Hgb 13.4 L Hct 40.3 MCV 84 MCH 28.1 MCHC 33.3 RDW 13.2 Plt Count 435 Seg Neutrophils % 66.7 Sodium 134.8 L Potassium 4.8 Chloride 99 Carbon Dioxide 25 Anion Gap 11 BUN 21 H Creatinine 0.53 Est GFR ( Amer) > 60 Glucose 172 H Calcium 8.8 Ferritin 408.00 Total Bilirubin 0.7 AST 19 Alkaline Phosphatase 41 C-Reactive Protein 30.6 H Total Protein 7.1 Albumin 3.6 Urine Color YELLOW Urine Appearance CLEAR Urine pH 5.0 Ur Specific [place] 1.028 Urine Protein NEGATIVE Urine Glucose (UA) >=500 H Urine Ketones TRACE H Urine Blood NEGATIVE Urine RBC (Auto) 1 08/21/20 08/21/20 15:50 19:34 Troponin I < 0.012 < 0.012 Impressions: Chest/Abdomen CTA 08/21/20 00:00 IMPRESSION: 1. No CT evidence of acute pulmonary embolism. 2. Diffuse severe multifocal ground glass opacities bilaterally. Although findings are nonspecific and differential diagnosis includes infectious and inflammatory causes, pattern is concerning for potential viral pneumonia. Clinical correlation is advised. Chest X-Ray 08/21/20 16:17 IMPRESSION: In the appropriate clinical setting, findings are consistent with multi lobar pneumonia. Given diffuse distribution, recommend consideration for atypical etiologies (to include viral/COVID) in treatment planning. Assessment and Plan - Diagnosis (1) Acute respiratory failure due to COVID-19 Is this a current diagnosis for this admission?: Yes (2) Pneumonia due to COVID-19 virus Is this a current diagnosis for this admission?: Yes (3) Type 2 diabetes mellitus treated with insulin Is this a current diagnosis for this admission?: Yes (4) Hypertension Qualifiers: Hypertension type: essential hypertension Qualified Code(s): I10 - Essential (primary) hypertension Is this a current diagnosis for this admission?: Yes (5) Hyperlipidemia associated with type 2 diabetes mellitus Is this a current diagnosis for this admission?: Yes (6) Morbid obesity Is this a current diagnosis for this admission?: Yes - Plan Summary Summary: Continue with Decadron. Continue remdesivir. On empiric antibiotic coverage, cultures pending. We resumed a few of his home medications, but most of his blood pressure medication was held because his blood pressure is not elevated at this point. Currently on 5 L nasal cannula, continue supportive care. Seems to be improving day-to-day. - Time Time Spent with patient: 15-24 minutes Anticipated Discharge Disposition: Home, Self Care Anticipated Discharge Timeframe: Unknown
[2020-08-25] MEDS: CEFTRIAXONE 1 GM/D5W RTU 1 GM/50 ML RTUPB IV SCH (17:00)
[2020-08-25] MEDS: ATORVASTATIN CALCIUM 10 MG TABLET PO SCH (22:37)
[2020-08-25] MEDS: REMDESIVIR 100 MG in NORMAL SALINE 250 ML IV SCH (22:53)
[2020-08-25 22:57] LABS: INTERNATIONAL RATION (INR) 0.94; PARTIAL THROMBOPLASTIN TIME 38.3 SEC (23.5-35.8); PROTHROMBIN TIME 12.8 SEC (11.4-15.4)
[2020-08-25 23:17] LABS: D-DIMER < 0.27 ug/mL (0.00-0.50)
[2020-08-26] MEDS: BENZONATATE 100 MG CAPSULE PO SCH ×3 (05:21→22:40)
[2020-08-26] MEDS: PANTOPRAZOLE SODIUM 40 MG TABLET.DR PO SCH (05:21)
[2020-08-26 05:22] LABS: HEMATOCRIT 38.9 % (37.9-51.0); HEMOGLOBIN 13.2 g/dL (13.5-17.0); MEAN CORPUSCULAR HEMOGLOBIN 28.7 pg (27.0-33.4); MEAN CORPUSCULAR HGB CONC 33.9 g/dL (32.0-36.0); MEAN CORPUSCULAR VOLUME 85 fl (80-97); PLATELET COUNT 473 10^3/uL (150-450); RED BLOOD COUNT 4.59 10^6/uL (4.35-5.55); RED CELL DISTRIBUTION WIDTH 13.1 % (11.5-14.0); WHITE BLOOD COUNT 7.8 10^3/uL (4.0-10.5)
[2020-08-26 05:54] LABS: ALBUMIN 3.5 g/dL (3.5-5.0); ALKALINE PHOSPHATASE 48 U/L (38-126); ANION GAP 8 (5-19); ASPARTATE AMINO TRANSFERASE 36 U/L (17-59); BILIRUBIN,DIRECT 0.2 mg/dL (0.0-0.4); BILIRUBIN,TOTAL 0.4 mg/dL (0.2-1.3); BLOOD UREA NITROGEN 22 mg/dL (7-20); CALCIUM 8.6 mg/dL (8.4-10.2); CARBON DIOXIDE 24 mmol/L (22-30); CHLORIDE 102 mmol/L (98-107); GLUCOSE 265 mg/dL (75-110); TOTAL PROTEIN 6.8 g/dL (6.3-8.2)
[2020-08-26] MEDS: INSULIN REG, HUMAN 100 UNIT/ML 3 ML VIAL (PYX) SUBCUT SCH ×4 (07:56→22:41)
[2020-08-26] MEDS ORDERED: PHENOL/SODIUM PHENOLATE 100 SPRAY/177 ML BOTTLE PO PRN (10:04)
[2020-08-26] MEDS ORDERED: ALBUTEROL SULFATE HFA (90 MCG/PUFF) 8 GM MDI IH PRN (10:08)
--- NOTE | 2020-08-26 10:23 | PDOC PROGRESS REPORT ---
Subjective Date:: 08/26/20 Subjective:: Developed short of breath. There is a noticeable difference when he gets up and walks to the bathroom. Most persistent issue is his cough and dry mouth. Reason For Visit: COVID,PNEUMONIA Physical Exam Vital Signs: Temp Pulse Resp BP Pulse Ox 97.4 F 64 16 141/82 H 99 08/26/20 07:32 08/26/20 07:32 08/26/20 07:32 08/26/20 07:32 08/26/20 07:32 Intake & Output 08/25/20 08/26/20 08/27/20 06:59 06:59 06:59 Intake Total 1380 1550 Output Total 1100 1750 Balance 280 -200 Weight 118 kg 118.9 kg General appearance: PRESENT: cooperative, mild distress Head exam: PRESENT: atraumatic, normocephalic Ear exam: PRESENT: normal external ear exam. ABSENT: bleeding, drainage Mouth exam: PRESENT: dry mucosa, tongue midline Respiratory exam: PRESENT: clear to auscultation sarah, symmetrical, tachypnea. ABSENT: rales, rhonchi, wheezes Cardiovascular exam: PRESENT: RRR, +S1, +S2, systolic murmur - 1/6. ABSENT: bradycardia, diastolic murmur GI/Abdominal exam: PRESENT: soft. ABSENT: tenderness Rectal exam: PRESENT: deferred Gentrourinary exam: ABSENT: indwelling catheter Extremities exam: ABSENT: pedal edema Neurological exam: PRESENT: alert, awake, oriented to person, oriented to place, oriented to time, oriented to situation, CN II-XII grossly intact. ABSENT: altered Psychiatric exam: PRESENT: appropriate affect. ABSENT: agitated, anxious Focused psych exam: ABSENT: delusional, paranoid, restlessness Results Laboratory Results: 08/26/20 04:46 08/26/20 04:46 08/25/20 08/26/20 08/26/20 03:00 04:46 04:46 WBC 7.8 RBC 4.59 Hgb 13.2 L Hct 38.9 MCV 85 MCH 28.7 MCHC 33.9 RDW 13.1 Plt Count 473 H Sodium 133.7 L Potassium 5.0 Chloride 102 Carbon Dioxide 24 Anion Gap 8 BUN 22 H Creatinine 0.76 Est GFR ( Amer) > 60 Glucose 265 H Calcium 8.6 Ferritin 395.00 Total Bilirubin 0.4 AST 36 Alkaline Phosphatase 48 C-Reactive Protein 19.0 H Total Protein 6.8 Albumin 3.5 Urine Color YELLOW Urine Appearance CLEAR Urine pH 5.0 Ur Specific [place] 1.028 Urine Protein NEGATIVE Urine Glucose (UA) >=500 H Urine Ketones TRACE H Urine Blood NEGATIVE Urine RBC (Auto) 1 08/21/20 08/21/20 15:50 19:34 Troponin I < 0.012 < 0.012 Impressions: Chest/Abdomen CTA 08/21/20 00:00 IMPRESSION: 1. No CT evidence of acute pulmonary embolism. 2. Diffuse severe multifocal ground glass opacities bilaterally. Although findings are nonspecific and differential diagnosis includes infectious and inflammatory causes, pattern is concerning for potential viral pneumonia. Clinical correlation is advised. Chest X-Ray 08/21/20 16:17 IMPRESSION: In the appropriate clinical setting, findings are consistent with multi lobar pneumonia. Given diffuse distribution, recommend consideration for atypical etiologies (to include viral/COVID) in treatment planning. Assessment and Plan - Diagnosis (1) Acute respiratory failure due to COVID-19 Is this a current diagnosis for this admission?: Yes (2) Pneumonia due to COVID-19 virus Is this a current diagnosis for this admission?: Yes (3) Type 2 diabetes mellitus treated with insulin Is this a current diagnosis for this admission?: Yes (4) Hypertension Qualifiers: Hypertension type: essential hypertension Qualified Code(s): I10 - Essential (primary) hypertension Is this a current diagnosis for this admission?: Yes (5) Hyperlipidemia associated with type 2 diabetes mellitus Is this a current diagnosis for this admission?: Yes (6) Obesity (BMI 30-39.9) Is this a current diagnosis for this admission?: Yes - Plan Summary Summary: Continue with Decadron. Continue remdesivir. On empiric antibiotic coverage, cultures pending. We resumed a few of his home medications, but most of his blood pressure medication was held because his blood pressure is not elevated at this point. Currently on 5 L nasal cannula, continue supportive care. Seems to be improving day-to-day. 08/26/2020 Complete Remdesivir. His cough is particularly bothersome. Added Chloraseptic. I also added some a.m. Lantus. Continue to monitor. Still requiring 5 L nasal cannula. - Time Time Spent with patient: 15-24 minutes Medications reviewed and adjusted accordingly: Yes Anticipated Discharge Disposition: Home, Self Care Anticipated Discharge Timeframe: within 72 hours
[2020-08-26] MEDS: ZINC SULFATE 220 MG CAPSULE PO SCH (10:27)
[2020-08-26] MEDS: ASCORBIC ACID 500 MG TABLET PO SCH ×2 (10:27→18:12)
[2020-08-26] MEDS: CARVEDILOL 6.25 MG TABLET PO SCH ×2 (10:27→22:40)
[2020-08-26] MEDS: GUAIFENESIN/CODEINE PHOS 100-10 MG/ 5 ML UDC PO PRN ×2 (10:27→20:45)
[2020-08-26] MEDS: CHOLECALCIFEROL (D3) 1,000 UNIT (25 MCG) TABLET PO SCH (10:27)
[2020-08-26] MEDS: DEXAMETHASONE SOD PHOSPHATE INJ 4 MG/1 ML VIAL IV SCH ×2 (10:27→22:41)
[2020-08-26] MEDS: ASPIRIN 81 MG TABLET, ENT COATED PO SCH (10:28)
[2020-08-26] MEDS: AZITHROMYCIN 250 MG TABLET PO SCH (10:41)
[2020-08-26] MEDS: CEFTRIAXONE 1 GM/D5W RTU 1 GM/50 ML RTUPB IV SCH (18:13)
[2020-08-26] MEDS: ATORVASTATIN CALCIUM 10 MG TABLET PO SCH (22:40)
[2020-08-26] MEDS: REMDESIVIR 100 MG in NORMAL SALINE 250 ML IV SCH (22:46)
[2020-08-27 05:59] LABS: HEMATOCRIT 38.6 % (37.9-51.0); HEMOGLOBIN 13.1 g/dL (13.5-17.0); MEAN CORPUSCULAR HEMOGLOBIN 28.8 pg (27.0-33.4); MEAN CORPUSCULAR HGB CONC 34.1 g/dL (32.0-36.0); MEAN CORPUSCULAR VOLUME 84 fl (80-97); RED BLOOD COUNT 4.57 10^6/uL (4.35-5.55); RED CELL DISTRIBUTION WIDTH 12.8 % (11.5-14.0); WHITE BLOOD COUNT 9.3 10^3/uL (4.0-10.5)
[2020-08-27 06:16] LABS: ANION GAP 9 (5-19); BLOOD UREA NITROGEN 21 mg/dL (7-20); CALCIUM 8.5 mg/dL (8.4-10.2); CARBON DIOXIDE 23 mmol/L (22-30); CHLORIDE 102 mmol/L (98-107); GLUCOSE 277 mg/dL (75-110)
[2020-08-27 06:43] LABS: ABSOLUTE LYMPHOCYTES# (MANUAL) 1.3 10^3/uL (0.5-4.7); ABSOLUTE MONOCYTES # (MANUAL) 0.7 10^3/uL (0.1-1.4); BASOPHILS % (MANUAL) 0 % (0-2); EOSINOPHILS % (MANUAL) 0 % (0-6); LYMPHOCYTES % (MANUAL) 14 % (13-45); MONOCYTES % (MANUAL) 8 % (3-13); SEGMENTED NEUTROPHILS % (MAN) 78 % (42-78); TOTAL CELLS COUNTED 100
[2020-08-27 06:47] LABS: PLATELET CLUMPS PRESENT; PLATELET COMMENT INCREASED; PLATELET COUNT 511 10^3/uL (150-450)
[2020-08-27] MEDS: BENZONATATE 100 MG CAPSULE PO SCH ×3 (06:47→21:10)
[2020-08-27] MEDS: PANTOPRAZOLE SODIUM 20 MG TABLET.DR PO SCH (06:47)
[2020-08-27 06:48] LABS: APPEARANCE,URINE CLEAR; BILIRUBIN,URINE NEGATIVE (NEGATIVE); COLOR,URINE STRAW; GLUCOSE, URINE >=500 mg/dL (NEGATIVE); KETONES,URINE TRACE mg/dL (NEGATIVE); LEUKOCYTE ESTERASE,URINE NEGATIVE (NEGATIVE); NITRITE,URINE NEGATIVE (NEGATIVE); PROTEIN,URINE NEGATIVE (NEGATIVE); URINE SPECIFIC GRAVITY 1.018; UROBILINOGEN,URINE NEGATIVE mg/dL (<2.0)
[2020-08-27] MEDS: INSULIN REG, HUMAN 100 UNIT/ML 3 ML VIAL (PYX) SUBCUT SCH ×4 (07:49→21:25)
[2020-08-27] MEDS: CARVEDILOL 6.25 MG TABLET PO SCH ×2 (09:21→21:10)
[2020-08-27] MEDS: CHOLECALCIFEROL (D3) 1,000 UNIT (25 MCG) TABLET PO SCH (09:21)
[2020-08-27] MEDS: ASPIRIN 81 MG TABLET, ENT COATED PO SCH (09:21)
[2020-08-27] MEDS: ZINC SULFATE 220 MG CAPSULE PO SCH (09:21)
[2020-08-27] MEDS: AZITHROMYCIN 250 MG TABLET PO SCH (09:21)
[2020-08-27] MEDS: GUAIFENESIN/CODEINE PHOS 100-10 MG/ 5 ML UDC PO PRN ×3 (09:21→21:25)
[2020-08-27] MEDS: ASCORBIC ACID 500 MG TABLET PO SCH ×2 (09:22→17:33)
[2020-08-27] MEDS: DEXAMETHASONE SOD PHOSPHATE INJ 4 MG/1 ML VIAL IV SCH ×2 (09:22→21:10)
[2020-08-27] MEDS: ENOXAPARIN SODIUM INJ 40 MG/0.4 ML DISP.SYRIN SUBCUT SCH (09:22)
[2020-08-27] MEDS ORDERED: INSULIN GLARGINE,HUM.REC.ANLOG 1,000 UNIT/10 ML VIAL SUBCUT SCH (10:00)
[2020-08-27] MEDS ORDERED: PSEUDOEPHEDRINE HCL 30 MG TABLET PO PRN (13:59)
--- NOTE | 2020-08-27 15:22 | PDOC PROGRESS REPORT ---
Subjective Date:: 08/27/20 Subjective:: Still very congested and still requiring 5 L nasal cannula. Mouth is still very dry. Reason For Visit: COVID,PNEUMONIA, diabetes Physical Exam Vital Signs: Temp Pulse Resp BP Pulse Ox 97.4 F 83 20 129/74 H 97 08/27/20 08:36 08/27/20 14:00 08/26/20 23:13 08/26/20 23:13 08/27/20 02:03 Intake & Output 08/26/20 08/27/20 08/28/20 06:59 06:59 06:59 Intake Total 1550 1580 Output Total 1750 700 Balance -200 880 Weight 118.9 kg 119.8 kg General appearance: PRESENT: cooperative, mild distress, well-developed Head exam: PRESENT: atraumatic, normocephalic Ear exam: PRESENT: normal external ear exam. ABSENT: bleeding, drainage Mouth exam: PRESENT: dry mucosa, tongue midline Respiratory exam: PRESENT: clear to auscultation sarah, symmetrical, tachypnea. ABSENT: rales, rhonchi, wheezes Cardiovascular exam: PRESENT: RRR, +S1, +S2. ABSENT: bradycardia, diastolic murmur, irregular rhythm, systolic murmur, tachycardia GI/Abdominal exam: PRESENT: normal bowel sounds, soft. ABSENT: tenderness Rectal exam: PRESENT: deferred Gentrourinary exam: ABSENT: indwelling catheter Extremities exam: ABSENT: pedal edema Musculoskeletal exam: PRESENT: ambulatory, normal inspection. ABSENT: deformity, dislocation Neurological exam: PRESENT: alert, awake, oriented to person, oriented to place, oriented to time, oriented to situation, CN II-XII grossly intact. ABSENT: altered Psychiatric exam: PRESENT: appropriate affect. ABSENT: agitated, anxious Focused psych exam: ABSENT: delusional, paranoid, restlessness Skin exam: PRESENT: dry, normal color, warm. ABSENT: cyanosis, rash Results Laboratory Results: 08/27/20 05:16 08/27/20 05:16 08/27/20 08/27/20 08/27/20 05:16 05:16 06:00 WBC 9.3 RBC 4.57 Hgb 13.1 L Hct 38.6 MCV 84 MCH 28.8 MCHC 34.1 RDW 12.8 Plt Count 511 H Seg Neutrophils % Not Reportable Sodium 134.0 L Potassium 5.0 Chloride 102 Carbon Dioxide 23 Anion Gap 9 BUN 21 H Creatinine 0.54 Est GFR ( Amer) > 60 Glucose 277 H Calcium 8.5 Magnesium 2.2 Urine Color STRAW Urine Appearance CLEAR Urine pH 6.0 Ur Specific [place] 1.018 Urine Protein NEGATIVE Urine Glucose (UA) >=500 H Urine Ketones TRACE H Urine Blood NEGATIVE Urine Nitrite NEGATIVE Ur Leukocyte Esterase NEGATIVE Urine WBC (Auto) 0 Urine RBC (Auto) 0 08/21/20 19:34 Blood Blood Culture - Final NO GROWTH IN 5 DAYS 08/21/20 15:50 Blood Blood Culture - Final NO GROWTH IN 5 DAYS 08/21/20 08/21/20 15:50 19:34 Troponin I < 0.012 < 0.012 Impressions: Chest/Abdomen CTA 08/21/20 00:00 IMPRESSION: 1. No CT evidence of acute pulmonary embolism. 2. Diffuse severe multifocal ground glass opacities bilaterally. Although findings are nonspecific and differential diagnosis includes infectious and inflammatory causes, pattern is concerning for potential viral pneumonia. Clinical correlation is advised. Chest X-Ray 08/21/20 16:17 IMPRESSION: In the appropriate clinical setting, findings are consistent with multi lobar pneumonia. Given diffuse distribution, recommend consideration for atypical etiologies (to include viral/COVID) in treatment planning. Assessment and Plan - Diagnosis (1) Acute respiratory failure due to COVID-19 Is this a current diagnosis for this admission?: Yes (2) Pneumonia due to COVID-19 virus Is this a current diagnosis for this admission?: Yes (3) Type 2 diabetes mellitus treated with insulin Is this a current diagnosis for this admission?: Yes (4) Hypertension Qualifiers: Hypertension type: essential hypertension Qualified Code(s): I10 - Essential (primary) hypertension Is this a current diagnosis for this admission?: Yes (5) Hyperlipidemia associated with type 2 diabetes mellitus Is this a current diagnosis for this admission?: Yes (6) Obesity (BMI 30-39.9) Is this a current diagnosis for this admission?: Yes - Plan Summary Summary: Continue with Decadron. Continue remdesivir. On empiric antibiotic coverage, cultures pending. We resumed a few of his home medications, but most of his blood pressure medication was held because his blood pressure is not elevated at this point. Currently on 5 L nasal cannula, continue supportive care. Seems to be improving day-to-day. 08/26/2020 Complete Remdesivir. His cough is particularly bothersome. Added Chloraseptic. I also added some a.m. Lantus. Continue to monitor. Still requiring 5 L nasal cannula. 08/27/2020 Despite the continued 5 L nasal cannula patient actually states he feels slightly better. The nasal congestion and dry mouth with cough are the most bothersome things. He keeps asking when he can go home and get back to work despite being on 5 L nasal cannula. He still has several days of ceftriaxone and azithromycin. He completed remdesivir and convalescent plasma. Continue to try to wean to room air as tolerated. I am adding Flonase and as needed Sudafed to the Chloraseptic spray to help relieve some of his congestion and cough. They seem to be the most bothersome aspects. Diabetes-the addition of 8 units of Lantus daily has not helped very much. I will increase it to 8 units twice daily and then possibly adjust it again tomorrow. No change in any of the other medications at this time. - Time Time Spent with patient: 15-24 minutes Medications reviewed and adjusted accordingly: Yes Anticipated Discharge Disposition: Home, Self Care Anticipated Discharge Timeframe: within 72 hours
[2020-08-27] MEDS: CEFTRIAXONE 1 GM/D5W RTU 1 GM/50 ML RTUPB IV SCH (17:32)
[2020-08-27] MEDS: ATORVASTATIN CALCIUM 10 MG TABLET PO SCH (21:10)
[2020-08-27] MEDS: FLUTICASONE NASAL SPRAY 50 MCG/SPRY 120 SPRAY/16 GM NASL SCH (21:10)
[2020-08-27] MEDS: INSULIN GLARGINE,HUM.REC.ANLOG 1,000 UNIT/10 ML VIAL SUBCUT SCH (21:25)
[2020-08-28] MEDS: GUAIFENESIN/CODEINE PHOS 100-10 MG/ 5 ML UDC PO PRN ×3 (05:02→21:39)
[2020-08-28] MEDS: PANTOPRAZOLE SODIUM 20 MG TABLET.DR PO SCH (05:02)
[2020-08-28] MEDS: BENZONATATE 100 MG CAPSULE PO SCH ×3 (05:02→21:39)
[2020-08-28 05:53] LABS: APPEARANCE,URINE CLEAR; BILIRUBIN,URINE NEGATIVE (NEGATIVE); COLOR,URINE STRAW; GLUCOSE, URINE >=500 mg/dL (NEGATIVE); KETONES,URINE 20 mg/dL (NEGATIVE); LEUKOCYTE ESTERASE,URINE NEGATIVE (NEGATIVE); NITRITE,URINE NEGATIVE (NEGATIVE); PROTEIN,URINE NEGATIVE (NEGATIVE); UROBILINOGEN,URINE NEGATIVE mg/dL (<2.0)
[2020-08-28 06:12] LABS: HEMATOCRIT 40.9 % (37.9-51.0); HEMOGLOBIN 13.7 g/dL (13.5-17.0); MEAN CORPUSCULAR HEMOGLOBIN 28.3 pg (27.0-33.4); MEAN CORPUSCULAR HGB CONC 33.3 g/dL (32.0-36.0); MEAN CORPUSCULAR VOLUME 85 fl (80-97); PLATELET COUNT 534 10^3/uL (150-450); RED BLOOD COUNT 4.83 10^6/uL (4.35-5.55); RED CELL DISTRIBUTION WIDTH 13.2 % (11.5-14.0); WHITE BLOOD COUNT 12.2 10^3/uL (4.0-10.5)
[2020-08-28] MEDS: INSULIN GLARGINE,HUM.REC.ANLOG 1,000 UNIT/10 ML VIAL SUBCUT SCH ×2 (09:19→21:41)
[2020-08-28] MEDS: ENOXAPARIN SODIUM INJ 40 MG/0.4 ML DISP.SYRIN SUBCUT SCH (09:19)
[2020-08-28] MEDS: INSULIN REG, HUMAN 100 UNIT/ML 3 ML VIAL (PYX) SUBCUT SCH ×4 (09:19→21:40)
[2020-08-28] MEDS: ASPIRIN 81 MG TABLET, ENT COATED PO SCH (09:20)
[2020-08-28] MEDS: CHOLECALCIFEROL (D3) 1,000 UNIT (25 MCG) TABLET PO SCH (09:20)
[2020-08-28] MEDS: ZINC SULFATE 220 MG CAPSULE PO SCH (09:20)
[2020-08-28] MEDS: AZITHROMYCIN 250 MG TABLET PO SCH (09:20)
[2020-08-28] MEDS: CARVEDILOL 6.25 MG TABLET PO SCH ×2 (09:20→21:39)
[2020-08-28] MEDS: DEXAMETHASONE SOD PHOSPHATE INJ 4 MG/1 ML VIAL IV SCH ×2 (09:20→21:40)
[2020-08-28] MEDS: ASCORBIC ACID 500 MG TABLET PO SCH ×2 (09:20→17:40)
[2020-08-28] MEDS: FLUTICASONE NASAL SPRAY 50 MCG/SPRY 120 SPRAY/16 GM NASL SCH ×2 (09:24→21:40)
[2020-08-28] MEDS ORDERED: INSULIN REG, HUMAN 100 UNIT/ML 3 ML VIAL (PYX) SUBCUT ONE ×3 (12:45→21:45)
--- NOTE | 2020-08-28 14:01 | PDOC PROGRESS REPORT ---
Subjective Date:: 08/28/20 Subjective:: The patient is resting comfortably in bed watching movie on his phone. He state s that he feels better. The Flonase and Sudafed have made a significant improvement in his nasal congestion. He did state that he blew his nose and there were multiple fragments of crusted blood. He also admitted to having some apple pie that was left by family for Thanksgiving. This certainly would contribute to his very high glucose levels. Reason For Visit: COVID,PNEUMONIA Physical Exam Vital Signs: Temp Pulse Resp BP Pulse Ox 98.3 F 86 18 143/73 H 92 08/28/20 12:07 08/28/20 12:07 08/28/20 12:07 08/28/20 12:07 08/28/20 12:07 Intake & Output 08/27/20 08/28/20 08/29/20 06:59 06:59 06:59 Intake Total 1580 1310 260 Output Total 700 Balance 880 1310 260 Weight 119.8 kg 118.5 kg General appearance: PRESENT: no acute distress, cooperative, well-developed Head exam: PRESENT: atraumatic, normocephalic Respiratory exam: PRESENT: clear to auscultation sarah, symmetrical, unlabored. ABSENT: rales, rhonchi, tachypnea, wheezes Cardiovascular exam: PRESENT: RRR, +S1, +S2. ABSENT: bradycardia, diastolic murmur, irregular rhythm, systolic murmur, tachycardia GI/Abdominal exam: PRESENT: normal bowel sounds, soft. ABSENT: distended, guarding, tenderness Rectal exam: PRESENT: deferred Gentrourinary exam: ABSENT: indwelling catheter Extremities exam: ABSENT: pedal edema Musculoskeletal exam: PRESENT: ambulatory, normal inspection. ABSENT: deformity, dislocation Neurological exam: PRESENT: alert, awake, oriented to person, oriented to place, oriented to time, oriented to situation, CN II-XII grossly intact. ABSENT: altered Psychiatric exam: PRESENT: appropriate affect. ABSENT: agitated, anxious Focused psych exam: ABSENT: delusional, paranoid, restlessness Skin exam: PRESENT: dry, normal color, warm. ABSENT: rash Results Laboratory Results: 08/28/20 05:23 08/27/20 05:16 08/28/20 08/28/20 05:14 05:23 WBC 12.2 H RBC 4.83 Hgb 13.7 Hct 40.9 MCV 85 MCH 28.3 MCHC 33.3 RDW 13.2 Plt Count 534 H Urine Color STRAW Urine Appearance CLEAR Urine pH 6.0 Ur Specific [place] 1.030 Urine Protein NEGATIVE Urine Glucose (UA) >=500 H Urine Ketones 20 H Urine Blood NEGATIVE Urine Nitrite NEGATIVE Ur Leukocyte Esterase NEGATIVE Urine WBC (Auto) 0 Urine RBC (Auto) 0 08/21/20 08/21/20 15:50 19:34 Troponin I < 0.012 < 0.012 Impressions: Chest/Abdomen CTA 08/21/20 00:00 IMPRESSION: 1. No CT evidence of acute pulmonary embolism. 2. Diffuse severe multifocal ground glass opacities bilaterally. Although findings are nonspecific and differential diagnosis includes infectious and inflammatory causes, pattern is concerning for potential viral pneumonia. Clinical correlation is advised. Chest X-Ray 08/21/20 16:17 IMPRESSION: In the appropriate clinical setting, findings are consistent with multi lobar pneumonia. Given diffuse distribution, recommend consideration for atypical etiologies (to include viral/COVID) in treatment planning. Assessment and Plan - Diagnosis (1) Acute respiratory failure due to COVID-19 Is this a current diagnosis for this admission?: Yes (2) Pneumonia due to COVID-19 virus Is this a current diagnosis for this admission?: Yes (3) Type 2 diabetes mellitus treated with insulin Is this a current diagnosis for this admission?: Yes (4) Hypertension Qualifiers: Hypertension type: essential hypertension Qualified Code(s): I10 - Essential (primary) hypertension Is this a current diagnosis for this admission?: Yes (5) Hyperlipidemia associated with type 2 diabetes mellitus Is this a current diagnosis for this admission?: Yes (6) Obesity (BMI 30-39.9) Is this a current diagnosis for this admission?: Yes - Plan Summary Summary: Continue with Decadron. Continue remdesivir. On empiric antibiotic coverage, cultures pending. We resumed a few of his home medications, but most of his blood pressure medication was held because his blood pressure is not elevated at this point. Currently on 5 L nasal cannula, continue supportive care. Seems to be improving day-to-day. 08/26/2020 Complete Remdesivir. His cough is particularly bothersome. Added Chloraseptic. I also added some a.m. Lantus. Continue to monitor. Still requiring 5 L nasal cannula. 08/27/2020 Despite the continued 5 L nasal cannula patient actually states he feels slightly better. The nasal congestion and dry mouth with cough are the most bothersome things. He keeps asking when he can go home and get back to work despite being on 5 L nasal cannula. He still has several days of ceftriaxone and azithromycin. He completed remdesivir and convalescent plasma. Continue to try to wean to room air as tolerated. I am adding Flonase and as needed Sudafed to the Chloraseptic spray to help relieve some of his congestion and cough. They seem to be the most bothersome aspects. Diabetes-the addition of 8 units of Lantus daily has not helped very much. I will increase it to 8 units twice daily and then possibly adjust it again tomorrow. No change in any of the other medications at this time. 08/28/2020 White blood cell count is slightly elevated. This could be related to the steroids. I am going to decrease the Decadron to 3 mg every 12 hours. He is resting comfortably on 3 L nasal cannula. I trended down to 2 L. I told him we can accept oxygen saturations of 89 to 94% at this time. Diabetes-I have added Lantus and increase that each day. Unfortunately he had apple pie this morning and that through his Accu-Chek weight loss. We did treat it with extra insulin. I am going to leave the Lantus as is for the rest of today. Hopefully the combination of decreasing the steroids and no more high carbohydrate snacks will allow him to settle. Covid pneumonia-we are starting to wean the oxygen supplement slowly. Hopefully within the next day or 2 I can get him to room air and discharged home. - Time Time Spent with patient: 15-24 minutes Medications reviewed and adjusted accordingly: Yes Anticipated Discharge Disposition: Home, Self Care Anticipated Discharge Timeframe: within 72 hours
[2020-08-28] MEDS: CEFTRIAXONE 1 GM/D5W RTU 1 GM/50 ML RTUPB IV SCH (17:40)
[2020-08-28] MEDS: ATORVASTATIN CALCIUM 10 MG TABLET PO SCH (21:39)
[2020-08-29] MEDS: PANTOPRAZOLE SODIUM 20 MG TABLET.DR PO SCH (05:48)
[2020-08-29] MEDS: BENZONATATE 100 MG CAPSULE PO SCH ×3 (05:48→22:29)
[2020-08-29] MEDS: INSULIN REG, HUMAN 100 UNIT/ML 3 ML VIAL (PYX) SUBCUT SCH ×4 (08:23→22:29)
[2020-08-29] MEDS: ASCORBIC ACID 500 MG TABLET PO SCH ×2 (11:43→17:37)
[2020-08-29] MEDS: CARVEDILOL 6.25 MG TABLET PO SCH ×2 (11:43→22:29)
[2020-08-29] MEDS: ZINC SULFATE 220 MG CAPSULE PO SCH (11:43)
[2020-08-29] MEDS: ASPIRIN 81 MG TABLET, ENT COATED PO SCH (11:43)
[2020-08-29] MEDS: CHOLECALCIFEROL (D3) 1,000 UNIT (25 MCG) TABLET PO SCH (11:43)
[2020-08-29] MEDS: AZITHROMYCIN 250 MG TABLET PO SCH (11:43)
[2020-08-29] MEDS: DEXAMETHASONE SOD PHOSPHATE INJ 4 MG/1 ML VIAL IV SCH ×2 (11:44→22:30)
[2020-08-29] MEDS: INSULIN GLARGINE,HUM.REC.ANLOG 1,000 UNIT/10 ML VIAL SUBCUT SCH ×2 (11:44→22:28)
[2020-08-29] MEDS: ENOXAPARIN SODIUM INJ 40 MG/0.4 ML DISP.SYRIN SUBCUT SCH (11:45)
[2020-08-29] MEDS: FLUTICASONE NASAL SPRAY 50 MCG/SPRY 120 SPRAY/16 GM NASL SCH ×2 (11:46→22:15)
--- NOTE | 2020-08-29 14:03 | PDOC PROGRESS REPORT ---
Subjective Date:: 08/29/20 Subjective:: The patient is actually up in the room he was walking to the bathroom when I ent ered. He sat at the edge of the bed. He still has some facial flushing but reports that he is feeling better. He has tolerated 2 L nasal cannula since yesterday. Reason For Visit: COVID,PNEUMONIA Physical Exam Vital Signs: Temp Pulse Resp BP Pulse Ox 97.5 F 60 18 162/79 H 97 08/29/20 07:46 08/29/20 07:46 08/29/20 07:46 08/29/20 07:46 08/29/20 07:46 Intake & Output 08/28/20 08/29/20 08/30/20 06:59 06:59 06:59 Intake Total 1310 2550 Balance 1310 2550 Weight 118.5 kg 121.8 kg General appearance: PRESENT: cooperative, mild distress, well-developed Head exam: PRESENT: atraumatic, normocephalic Ear exam: PRESENT: normal external ear exam. ABSENT: bleeding, drainage Mouth exam: PRESENT: moist, tongue midline Respiratory exam: PRESENT: clear to auscultation sarah, symmetrical, unlabored. ABSENT: rales, rhonchi, tachypnea, wheezes Cardiovascular exam: PRESENT: RRR, +S1, +S2. ABSENT: bradycardia, diastolic murmur, irregular rhythm, systolic murmur, tachycardia GI/Abdominal exam: PRESENT: normal bowel sounds, soft. ABSENT: tenderness Rectal exam: PRESENT: deferred Gentrourinary exam: ABSENT: indwelling catheter Extremities exam: ABSENT: calf tenderness, pedal edema Musculoskeletal exam: PRESENT: ambulatory, deformity, dislocation, normal inspection Neurological exam: PRESENT: alert, awake, oriented to person, oriented to place, oriented to time, oriented to situation, CN II-XII grossly intact. ABSENT: altered Psychiatric exam: PRESENT: appropriate affect. ABSENT: agitated, anxious Focused psych exam: ABSENT: delusional, paranoid, restlessness Results Laboratory Results: 08/28/20 05:23 08/27/20 05:16 08/21/20 08/21/20 15:50 19:34 Troponin I < 0.012 < 0.012 Impressions: Chest/Abdomen CTA 08/21/20 00:00 IMPRESSION: 1. No CT evidence of acute pulmonary embolism. 2. Diffuse severe multifocal ground glass opacities bilaterally. Although findings are nonspecific and differential diagnosis includes infectious and inflammatory causes, pattern is concerning for potential viral pneumonia. Clinical correlation is advised. Chest X-Ray 08/21/20 16:17 IMPRESSION: In the appropriate clinical setting, findings are consistent with multi lobar pneumonia. Given diffuse distribution, recommend consideration for atypical etiologies (to include viral/COVID) in treatment planning. Assessment and Plan - Diagnosis (1) Acute respiratory failure due to COVID-19 Is this a current diagnosis for this admission?: Yes (2) Pneumonia due to COVID-19 virus Is this a current diagnosis for this admission?: Yes (3) Type 2 diabetes mellitus treated with insulin Is this a current diagnosis for this admission?: Yes (4) Hypertension Qualifiers: Hypertension type: essential hypertension Qualified Code(s): I10 - Essential (primary) hypertension Is this a current diagnosis for this admission?: Yes (5) Hyperlipidemia associated with type 2 diabetes mellitus Is this a current diagnosis for this admission?: Yes (6) Obesity (BMI 30-39.9) Is this a current diagnosis for this admission?: Yes - Plan Summary Summary: Continue with Decadron. Continue remdesivir. On empiric antibiotic coverage, cultures pending. We resumed a few of his home medications, but most of his blood pressure medication was held because his blood pressure is not elevated at this point. Currently on 5 L nasal cannula, continue supportive care. Seems to be improving day-to-day. 08/26/2020 Complete Remdesivir. His cough is particularly bothersome. Added Chloraseptic. I also added some a.m. Lantus. Continue to monitor. Still requiring 5 L nasal cannula. 08/27/2020 Despite the continued 5 L nasal cannula patient actually states he feels slightly better. The nasal congestion and dry mouth with cough are the most b othersome things. He keeps asking when he can go home and get back to work despite being on 5 L nasal cannula. He still has several days of ceftriaxone and azithromycin. He completed remdesivir and convalescent plasma. Continue to try to wean to room air as tolerated. I am adding Flonase and as needed Sudafed to the Chloraseptic spray to help relieve some of his congestion and cough. They seem to be the most bothersome aspects. Diabetes-the addition of 8 units of Lantus daily has not helped very much. I will increase it to 8 units twice daily and then possibly adjust it again tomorrow. No change in any of the other medications at this time. 08/28/2020 White blood cell count is slightly elevated. This could be related to the steroids. I am going to decrease the Decadron to 3 mg every 12 hours. He is resting comfortably on 3 L nasal cannula. I trended down to 2 L. I told him we can accept oxygen saturations of 89 to 94% at this time. Diabetes-I have added Lantus and increase that each day. Unfortunately he had apple pie this morning and that through his Accu-[employer]k weight loss. We did treat it with extra insulin. I am going to leave the Lantus as is for the rest of today. Hopefully the combination of decreasing the steroids and no more high carbohydrate snacks will allow him to settle. Covid pneumonia-we are starting to wean the oxygen supplement slowly. Hopefully within the next day or 2 I can get him to room air and discharged home. 08/29/2020 No new labs today. We will decrease nasal cannula to 1 L/min with the hope of room air tomorrow. Adjusting the Lantus shows glucose finally staying under 400. I am going to decrease the Decadron again to 4 mg once a day from 3 mg twice a day. He completes his azithromycin tomorrow. - Time Time Spent with patient: Less than 15 minutes Medications reviewed and adjusted accordingly: Yes Anticipated Discharge Disposition: Home, Self Care Anticipated Discharge Timeframe: within 48 hours
[2020-08-29] MEDS: ATORVASTATIN CALCIUM 10 MG TABLET PO SCH (22:28)
[2020-08-30] MEDS: BENZONATATE 100 MG CAPSULE PO SCH ×2 (06:07→13:23)
[2020-08-30] MEDS: PANTOPRAZOLE SODIUM 20 MG TABLET.DR PO SCH (06:07)
[2020-08-30] MEDS: INSULIN REG, HUMAN 100 UNIT/ML 3 ML VIAL (PYX) SUBCUT SCH ×2 (08:50→13:23)
[2020-08-30] MEDS ORDERED: DEXAMETHASONE SOD PHOSPHATE INJ 4 MG/1 ML VIAL IV SCH (10:00)
[2020-08-30] MEDS: CARVEDILOL 6.25 MG TABLET PO SCH (10:51)
[2020-08-30] MEDS: CHOLECALCIFEROL (D3) 1,000 UNIT (25 MCG) TABLET PO SCH (10:51)
[2020-08-30] MEDS: ASCORBIC ACID 500 MG TABLET PO SCH (10:51)
[2020-08-30] MEDS: AZITHROMYCIN 250 MG TABLET PO SCH (10:51)
[2020-08-30] MEDS: ZINC SULFATE 220 MG CAPSULE PO SCH (10:51)
[2020-08-30] MEDS: ASPIRIN 81 MG TABLET, ENT COATED PO SCH (10:51)
[2020-08-30] MEDS: INSULIN GLARGINE,HUM.REC.ANLOG 1,000 UNIT/10 ML VIAL SUBCUT SCH (10:52)
[2020-08-30] MEDS: ENOXAPARIN SODIUM INJ 40 MG/0.4 ML DISP.SYRIN SUBCUT SCH (10:53)
--- NOTE | 2020-08-30 11:21 | PDOC DISCHARGE SUMMARY ---
Impression - Admit/DC Date/PCP Admission Date/Primary Care Provider: 08/21/20 18:41 TONY CLINE MD Discharge Date: 08/30/20 - Discharge Diagnosis (1) Acute respiratory failure due to COVID-19 Is this a current diagnosis for this admission?: Yes (2) Pneumonia due to COVID-19 virus Is this a current diagnosis for this admission?: Yes (3) Type 2 diabetes mellitus treated with insulin Is this a current diagnosis for this admission?: Yes (4) Hypertension Is this a current diagnosis for this admission?: Yes (5) Hyperlipidemia associated with type 2 diabetes mellitus Is this a current diagnosis for this admission?: Yes (6) Obesity (BMI 30-39.9) Is this a current diagnosis for this admission?: Yes - Assessment Summary: Continue with Decadron. Continue remdesivir. On empiric antibiotic coverage, cultures pending. We resumed a few of his home medications, but most of his blood pressure medication was held because his blood pressure is not elevated at this point. Currently on 5 L nasal cannula, continue supportive care. Seems to be improving day-to-day. 08/26/2020 Complete Remdesivir. His cough is particularly bothersome. Added Chloraseptic. I also added some a.m. Lantus. Continue to monitor. Still requiring 5 L nasal cannula. 08/27/2020 Despite the continued 5 L nasal cannula patient actually states he feels slightly better. The nasal congestion and dry mouth with cough are the most bothersome things. He keeps asking when he can go home and get back to work despite being on 5 L nasal cannula. He still has several days of ceftriaxone and azithromycin. He completed remdesivir and convalescent plasma. Continue to try to wean to room air as tolerated. I am adding Flonase and as needed Sudafed to the Chloraseptic spray to help relieve some of his congestion and cough. They seem to be the most bothersome aspects. Diabetes-the addition of 8 units of Lantus daily has not helped very much. I will increase it to 8 units twice daily and then possibly adjust it again tomorrow. No change in any of the other medications at this time. 08/28/2020 White blood cell count is slightly elevated. This could be related to the elliott roids. I am going to decrease the Decadron to 3 mg every 12 hours. He is resting comfortably on 3 L nasal cannula. I trended down to 2 L. I told him we can accept oxygen saturations of 89 to 94% at this time. Diabetes-I have added Lantus and increase that each day. Unfortunately he had apple pie this morning and that through his Accu-Chek weight loss. We did treat it with extra insulin. I am going to leave the Lantus as is for the rest of today. Hopefully the combination of decreasing the steroids and no more high carbohydrate snacks will allow him to settle. Covid pneumonia-we are starting to wean the oxygen supplement slowly. Hopefully within the next day or 2 I can get him to room air and discharged home. 08/29/2020 No new labs today. We will decrease nasal cannula to 1 L/min with the hope of room air tomorrow. Adjusting the Lantus shows glucose finally staying under 400. I am going to decrease the Decadron again to 4 mg once a day from 3 mg twice a day. He completes his azithromycin tomorrow. 08/30/2020 The patient has been on room air. His saturations have been acceptable and he is anxious for home. He will need to follow the health department/CDC guidelines for quarantine. He did report that he believes his at least is going to test positive. His and children are going to a walk-in clinic tomorrow. There was a family vacation and just about everyone who attended has been Covid positive. I did warn him that he will be exceptionally weak for some time. He intends to follow-up with his primary provider Dr. Cline this week. - Additional Information Resuscitation Status: Full Code Referrals: TONY CLINE MD [Primary Care Provider] - Follow up as needed Prescriptions: Prednisone [Deltasone 10 mg Tablet] 10 mg PO ASDIR #22 tablet Guaifenesin/Codeine Phos [Robitussin-AC Liquid 5 ml Udcup] 5 ml PO QIDP PRN 7 Days #100 ml PRN Reason: Cough Albuterol Sulfate [Ventolin Hfa 8 gm Mdi] 2 puff IH Q4HP PRN #1 inhaler PRN Reason: Home Medications: Irbesartan [Avapro] 300 mg PO DAILY 12/02/14 Metformin HCl [Glucophage] 1,000 mg PO BID 12/02/14 Pravastatin Sodium [Pravachol] 40 mg PO DAILY 12/02/14 Canagliflozin [Invokana] 300 mg PO DAILY 08/22/20 Carvedilol [Coreg 6.25 mg Tablet] 6.25 mg PO BID 08/22/20 Dulaglutide [Trulicity] 3 mg SQ REEVES@1000 08/22/20 Fenofibrate 160 mg PO DAILY 08/22/20 Insulin Degludec [Tresiba] 110 unit SQ DAILY 08/22/20 Potassium Chloride [Klor-Con 10 Meq Tablet ER] 20 meq PO DAILY 08/22/20 Albuterol Sulfate [Ventolin Hfa 8 gm Mdi] 2 puff IH Q4HP PRN #1 inhaler 08/30/20 Ascorbic Acid [Vitamin C 500 mg Tablet] 500 mg PO BID tablet 08/30/20 Aspirin [Ecotrin 81 mg EC Tablet] 81 mg PO DAILY tabec 08/30/20 Cholecalciferol (Vitamin D3) [Vitamin D3 1000 Unit Tablet] 2,000 unit PO DAILY tablet 08/30/20 Fluticasone Propionate [Flonase Nasal Baxley 50 Mcg/Baxley 16 gm] 1 spray NASL Q12 spray.pump 08/30/20 Guaifenesin/Codeine Phos [Robitussin-AC Liquid 5 ml Udcup] 5 ml PO QIDP PRN 7 Days #100 ml 08/30/20 Phenol/Sodium Phenolate [Chloraseptic Sore Throat Baxley 177 ml] 2 spray PO PRN PRN bottle 08/30/20 Prednisone [Deltasone 10 mg Tablet] 10 mg PO ASDIR #22 tablet 08/30/20 Sodium Chloride [[place] Nasal Bax[place] 44 ml Bottle] 1 spray NAREB Q2HP PRN bottle 08/30/20 Zinc Sulfate [Zinc-220 Capsule] 220 mg PO DAILY capsule 08/30/20 History of Present Illiness History of Present Illness: KAROLINA HUANG is a 45 year old male with history of diabetes mellitus, hypertension, hypercholesteremia, obesity, sleep apnea came to the emergency room complaining of not feeling well, associated with shortness of breath for the last 1 week. He went to [facility] [place] in [place] 1 week ago came back with the symptoms. He was tested for COVID-19 2 days ago which was positive. In the emergency room patient was tachypneic tachycardic, requiring oxygen supplementations. Medical consult was called for admission to hospital. Patient is full code. Hospital Course Hospital Course: See above Physical Exam Vital Signs: Temp Pulse Resp BP Pulse Ox 97.5 F 59 L 16 148/76 H 95 08/30/20 03:40 08/30/20 03:40 08/30/20 03:40 08/30/20 03:40 08/30/20 03:40 Intake & Output 08/29/20 08/30/20 08/31/20 06:59 06:59 06:59 Intake Total 2550 1320 Balance 2550 1320 Weight 121.8 kg 122.4 kg General appearance: PRESENT: no acute distress, other - Resting comfortably on room air Head exam: PRESENT: atraumatic, normocephalic Respiratory exam: PRESENT: clear to auscultation sarah, symmetrical, unlabored. ABSENT: prolonged expiratory phas, rales, rhonchi, tachypnea, wheezes Cardiovascular exam: PRESENT: RRR, +S1, +S2. ABSENT: bradycardia, diastolic murmur, irregular rhythm, systolic murmur, tachycardia GI/Abdominal exam: PRESENT: normal bowel sounds, soft. ABSENT: tenderness Rectal exam: PRESENT: deferred Gentrourinary exam: ABSENT: indwelling catheter Extremities exam: ABSENT: pedal edema Neurological exam: PRESENT: alert, awake, oriented to person, oriented to place, oriented to time, oriented to situation, CN II-XII grossly intact. ABSENT: altered Psychiatric exam: PRESENT: appropriate affect. ABSENT: agitated, anxious Results Laboratory Results: WBC 12.2 10^3/uL (4.0-10.5) H 08/28/20 05:23 RBC 4.83 10^6/uL (4.35-5.55) 08/28/20 05:23 Hgb 13.7 g/dL (13.5-17.0) 08/28/20 05:23 Hct 40.9 % (37.9-51.0) 08/28/20 05:23 MCV 85 fl (80-97) 08/28/20 05:23 MCH 28.3 pg (27.0-33.4) 08/28/20 05:23 MCHC 33.3 g/dL (32.0-36.0) 08/28/20 05:23 RDW 13.2 % (11.5-14.0) 08/28/20 05:23 Plt Count 534 10^3/uL (150-450) H 08/28/20 05:23 Lymph % (Auto) Not Reportable 08/27/20 05:16 Meriwether % (Auto) Not Reportable 08/27/20 05:16 Eos % (Auto) Not Reportable 08/27/20 05:16 Baso % (Auto) Not Reportable 08/27/20 05:16 Absolute Neuts (auto) Not Reportable 08/27/20 05:16 Absolute Lymphs (auto) Not Reportable 08/27/20 05:16 Absolute Monos (auto) Not Reportable 08/27/20 05:16 Absolute Eos (auto) Not Reportable 08/27/20 05:16 Absolute Basos (auto) Not Reportable 08/27/20 05:16 Total Counted 100 08/27/20 05:16 Seg Neutrophils % Not Reportable 08/27/20 05:16 Seg Neuts % (Manual) 78 % (42-78) 08/27/20 05:16 Lymphocytes % (Manual) 14 % (13-45) 08/27/20 05:16 Monocytes % (Manual) 8 % (3-13) 08/27/20 05:16 Eosinophils % (Manual) 0 % (0-6) 08/27/20 05:16 Basophils % (Manual) 0 % (0-2) 08/27/20 05:16 Abs Neuts (Manual) 7.3 10^3/uL (1.7-8.2) 08/27/20 05:16 Abs Lymphs (Manual) 1.3 10^3/uL (0.5-4.7) 08/27/20 05:16 Abs Monocytes (Manual) 0.7 10^3/uL (0.1-1.4) 08/27/20 05:16 Absolute Eos (Manual) 0.0 10^3/uL (0.0-0.6) 08/27/20 05:16 Abs Basophils (Manual) 0.0 10^3/uL (0.0-0.2) 08/27/20 05:16 Clumped Platelets PRESENT 08/27/20 05:16 Platelet Comment INCREASED 08/27/20 05:16 PT 12.8 SEC (11.4-15.4) 08/25/20 22:10 INR 0.94 08/25/20 22:10 APTT 38.3 SEC (23.5-35.8) H 08/25/20 22:10 D-Dimer < 0.27 ug/mL (0.00-0.50) 08/25/20 22:10 Carbonic Acid 1.11 mmol/L (1.05-1.35) 08/21/20 17:52 HCO3/H2CO3 Ratio 20:1 08/21/20 17:52 ABG pH 7.40 (7.35-7.45) 08/21/20 17:52 ABG pCO2 37.0 mmHg (35-45) 08/21/20 17:52 ABG pO2 73.6 mmHg (80-100) L 08/21/20 17:52 ABG HCO3 22.4 mmol/L (20-24) 08/21/20 17:52 ABG Total CO2 23.5 mmol/L (23-27) 08/21/20 17:52 ABG O2 Saturation 94.9 % (94-98) 08/21/20 17:52 ABG Base Excess -1.9 mmol/L 08/21/20 17:52 FiO2 4L 08/21/20 17:52 Sodium 134.0 mmol/L (137-145) L 08/27/20 05:16 Potassium 5.0 mmol/L (3.6-5.0) 08/27/20 05:16 Chloride 102 mmol/L (98-107) 08/27/20 05:16 Carbon Dioxide 23 mmol/L (22-30) 08/27/20 05:16 Anion Gap 9 (5-19) 08/27/20 05:16 BUN 21 mg/dL (7-20) H 08/27/20 05:16 Creatinine 0.54 mg/dL (0.52-1.25) 08/27/20 05:16 Est GFR ( Amer) > 60 (>60) 08/27/20 05:16 Est GFR (MDRD) Non-Af > 60 (>60) 08/27/20 05:16 Glucose 277 mg/dL (75-110) H 08/27/20 05:16 POC Glucose 255 mg/dL (70-110) H 08/30/20 07:42 Lactic Acid 2.0 mmol/L (0.7-2.1) 08/21/20 15:50 Calcium 8.5 mg/dL (8.4-10.2) 08/27/20 05:16 Magnesium 2.2 mg/dL (1.6-2.3) 08/27/20 05:16 Ferritin 395.00 ng/mL (17.9-464.0) 08/26/20 04:46 Total Bilirubin 0.4 mg/dL (0.2-1.3) 08/26/20 04:46 Direct Bilirubin 0.2 mg/dL (0.0-0.4) 08/26/20 04:46 Neonat Total Bilirubin Not Reportable 08/26/20 04:46 Neonat Direct Bilirubin Not Reportable 08/26/20 04:46 Neonat Indirect Bili Not Reportable 08/26/20 04:46 AST 36 U/L (17-59) 08/26/20 04:46 ALT 35 U/L (<50) 08/26/20 04:46 Alkaline Phosphatase 48 U/L (38-126) 08/26/20 04:46 Lactate Dehydrogenase 289 U/L (120-246) H 08/21/20 15:50 Troponin I < 0.012 ng/mL 08/21/20 19:34 C-Reactive Protein 19.0 mg/L (<10.0) H 08/26/20 04:46 Total Protein 6.8 g/dL (6.3-8.2) 08/26/20 04:46 Albumin 3.5 g/dL (3.5-5.0) 08/26/20 04:46 Urine Color STRAW 08/28/20 05:14 Urine Appearance CLEAR 08/28/20 05:14 Urine pH 6.0 (5.0-9.0) 08/28/20 05:14 Ur Specific Antelope 1.030 08/28/20 05:14 Urine Protein NEGATIVE mg/dL (NEGATIVE) 08/28/20 05:14 Urine Glucose (UA) >=500 mg/dL (NEGATIVE) H 08/28/20 05:14 Urine Ketones 20 mg/dL (NEGATIVE) H 08/28/20 05:14 Urine Blood NEGATIVE (NEGATIVE) 08/28/20 05:14 Urine Nitrite NEGATIVE (NEGATIVE) 08/28/20 05:14 Urine Nitrite (Reflex) NEGATIVE (NEGATIVE) 08/25/20 03:00 Urine Bilirubin NEGATIVE (NEGATIVE) 08/28/20 05:14 Urine Urobilinogen NEGATIVE mg/dL (<2.0) 08/28/20 05:14 Ur Leukocyte Esterase NEGATIVE (NEGATIVE) 08/28/20 05:14 Leukocyte Esterase Rfl NEGATIVE (NEGATIVE) 08/25/20 03:00 Urine WBC (Auto) 0 /HPF 08/28/20 05:14 Urine RBC (Auto) 0 /HPF 08/28/20 05:14 Urine Bacteria (Auto) TRACE /HPF 08/25/20 03:00 Urine WBC (Reflex) < 1 /HPF 08/25/20 03:00 Urine Mucus (Auto) RARE /LPF 08/28/20 05:14 Urine Yeast (Budding) PRESENT /HPF 08/25/20 03:00 Urine Ascorbic Acid NEGATIVE (NEGATIVE) 08/28/20 05:14 Influenza A (Rapid) NEGATIVE (NEGATIVE) 08/22/20 09:20 Influenza B (Rapid) NEGATIVE (NEGATIVE) 08/22/20 09:20 Blood Type O POSITIVE 08/21/20 19:34 08/21/20 08/21/20 15:50 19:34 Troponin I < 0.012 < 0.012 Impressions: Chest/Abdomen CTA 08/21/20 00:00 IMPRESSION: 1. No CT evidence of acute pulmonary embolism. 2. Diffuse severe multifocal ground glass opacities bilaterally. Although findings are nonspecific and differential diagnosis includes infectious and inflammatory causes, pattern is concerning for potential viral pneumonia. Clinical correlation is advised. Chest X-Ray 08/21/20 16:17 IMPRESSION: In the appropriate clinical setting, findings are consistent with multi lobar pneumonia. Given diffuse distribution, recommend consideration for atypical etiologies (to include viral/COVID) in treatment planning. Plan Health Concerns: Covid positive pneumonia. Recovery will continue at home. Diabetes was out of control during hospitalization but should settle when he is off of steroids. Plan of Treatment: Discharge home. Taper off of steroids. Resume previous diabetic medications. Follow-up with primary care provider this week. Goals: Complete recovery of of the patient from his Covid pneumonia with return to normal function Time Spent: Greater than 30 Minutes Stroke Is this a Stroke Patient?: No Acute Heart Failure Is this a Heart Failure Patient?: No
[2020-08-30] MEDS: FLUTICASONE NASAL SPRAY 50 MCG/SPRY 120 SPRAY/16 GM NASL SCH (13:23)
[2020-08-30] MEDS ORDERED: METOPROLOL TARTRATE PF/INJ 5 MG/5 ML SDV IV ONE (14:20)
[2020-08-30 14:40] VITALS: BP 120/78
== END 2020-08-30 15:21 | disposition home or self-care (01) | DRG 177 ==
LOC: ER 15:47 → EH 18:41 → 3W 23:11
PROVIDERS: ADMIT Internal Medicine; ATTEND Hospitalist
PROC: 5A09457 Assistance with Respiratory Ventilation, 24-96 Consecutive Hours, Continuous Positive Airway Pressure (ICD-10-PCS; 2020-08-21)
PROC: XW033E5 Introduction of Remdesivir Anti-infective into Peripheral Vein, Percutaneous Approach, New Technology Group 5 (ICD-10-PCS; principal; 2020-08-22)
PROC: XW13325 Transfusion of Convalescent Plasma (Nonautologous) into Peripheral Vein, Percutaneous Approach, New Technology Group 5 (ICD-10-PCS; 2020-08-22)
DX: U07.1 COVID-19 (principal); J18.9 Pneumonia, unspecified organism; J96.01 Acute respiratory failure with hypoxia; J12.89 Other viral pneumonia; E11.9 Type 2 diabetes mellitus without complications; I10 Essential (primary) hypertension; K21.9 Gastro-esophageal reflux disease without esophagitis; G47.33 Obstructive sleep apnea (adult) (pediatric); E78.5 Hyperlipidemia, unspecified; E66.9 Obesity, unspecified; Z87.891 Personal history of nicotine dependence; Z83.3 Family history of diabetes mellitus; Z82.49 Family history of ischemic heart disease and other diseases of the circulatory system; Z79.84 Long term (current) use of oral hypoglycemic drugs; Z68.37 Body mass index [BMI] 37.0-37.9, adult
CPT/HCPCS: 36415; 36430; 71045; 71275; 80048; 80053; 81001; 82728; 82803; 82962; 83605; 83615; 83735; 84484; 85025; 85027; 85379; 85610; 85730; 86140; 86900; 86901; 87040; 87804; 93005; 93010; 94660; 99285; J0456; J0696; J1100; J1650; J1815; J3490; J7050